=== PATIENT | male | born 1955 | race Caucasian/White ===

== ENCOUNTER → 2017-07-05 07:24 | Outpatient (CLI) | payer OTHER, SELFPAY | PROVIDERS: Family Provider Family Medicine; PCP Family Medicine; Visit Provider Family Medicine | DX: Z53.9 Procedure and treatment not carried out, unspecified reason (principal) ==

== ENCOUNTER → 2017-07-10 16:20 | Outpatient (CLI) | payer OTHER, SELFPAY ==
--- NOTE | 2017-07-10 16:23 | DI.MRI.S_ITS ---
PROCEDURE: MR SHOULDER LT WO CON INDICATIONS: left shoulder pain TECHNIQUE: Noncontrast oblique coronal T2 fast spin echo with fat saturation, oblique sagittal T1 spin echo and T2 fast spin echo with fat saturation, axial T1 spin echo and T2 fast spin echo with fat saturation through the shoulder. COMPARISON: None. FINDINGS: Image quality: Excellent. Rotator cuff: The infraspinatus and subscapularis tendons appear intact throughout. In contrast there is a wide full-thickness supraspinatus rotator cuff tear measuring up to 3.9 cm in maximal transverse dimension, and with associated adjacent mild soft tissue edema indicating likelihood of acute or subacute tear rather than chronic tear. Atrophy of the adjacent supraspinatus musculature is not present. No rotator cuff muscle atrophy on sagittal images. Bones and bursae: No bone marrow contusions or fractures. There is mild acromioclavicular joint degeneration with only mild fibrous and osseous hypertrophy potentially impinging mildly on the expected course of the supraspinatus tendon in the past. The acromion demonstrates conventional anatomy, without an os acromiale. No pathologic subacromial-subdeltoid or subcoracoid bursal fluid is present. Capsule and soft tissues: In the absence of intra-articular contrast, the labrum and glenohumeral ligaments appear intact. The long head of the biceps tendon demonstrates normal location and morphology. The rotator interval appears normal, without fibrosis. The coracohumeral ligament is normal in thickness. IMPRESSION: Wide full-thickness supraspinatus rotator cuff tear retracted medially, associated with only mild degenerative change at the acromioclavicular joint where mild chronic impingement may have been previously present from fibrous and osseous hypertrophy against the normal course of the supraspinatus tendon. No additional injury found. Dictated by: Bertrand Robin M.D. on 07/10/2017 at 16:57 Approved by: Bertrand Robin M.D. on 07/10/2017 at 16:59
== END ==
PROVIDERS: Family Provider Family Medicine; PCP Family Medicine; Visit Provider Family Medicine
DX: M75.122 Complete rotator cuff tear or rupture of left shoulder, not specified as traumatic (principal)
CPT/HCPCS: 73221

== ENCOUNTER → 2017-07-24 18:30 | Outpatient (CLI) | payer OTHER, SELFPAY ==
--- NOTE | 2017-07-24 18:33 | DI.MRI.S_ITS ---
PROCEDURE: MR SHOULDER RT WO CON INDICATIONS: ROTATOR CUFF TENDINITIS TECHNIQUE: Noncontrast oblique coronal T2 fast spin echo with fat saturation, oblique sagittal T1 spin echo and T2 fast spin echo with fat saturation, axial T1 spin echo and T2 fast spin echo with fat saturation through the shoulder. COMPARISON: [facility], MR, MR SHOULDER LT WO CON, 07/10/2017, 16:28. FINDINGS: Image quality: Excellent. Rotator cuff: The supraspinatus, infraspinatus, and subscapularis tendons appear intact throughout but there is mild thickening of the supraspinatus rotator cuff laterally, consistent with tendinosis, but a partial or full thickness tear is not present. No rotator cuff muscle atrophy on sagittal images. Bones and bursae: No bone marrow contusions or fractures. Moderate acromioclavicular joint degeneration and mild to moderate glenohumeral joint osteoarthritis also is present. There is inferior tilt of the lateral acromion and secondary fibrous and osseous hypertrophy from the degenerated a.c. joint produces mild chronic impingement against the supraspinatus course of the rotator cuff. The acromion demonstrates conventional anatomy, without an os acromiale. No pathologic subacromial-subdeltoid or subcoracoid bursal fluid is present. Marrow signal shows no sign of bone bruising or fracture, or underlying neoplastic or infectious process. Capsule and soft tissues: In the absence of intra-articular contrast, the labrum and glenohumeral ligaments appear intact. The long head of the biceps tendon demonstrates normal location and morphology. The rotator interval appears normal, without fibrosis. The coracohumeral ligament is normal in thickness. IMPRESSION: 1. The clinical history for the left shoulder MRI performed 07/10/17 had stated that the pain was related to a tree falling on the patient one year ago. The current history indicates that the pain may be related to fall on ice in January of last year. The prior MRI report includes an addendum section identifying marrow edema and abnormal fluid along the inferior posterior border of the scapula, which could have been produced by trauma in January but unlikely to be residual edema from injury over one year ago. Please correlate clinically to determine whether any additional imaging of the left scapula, for example by CT scanning for fracture, is necessary. 2. The current study shows a moderately severe degree of a.c. joint osteoarthritis and the inferior tilt of the lateral acromion, with secondary mild to moderate impingement against the supraspinatus course of the rotator cuff. Tendinosis with mild thickening of the lateral supraspinatus is present, but a partial or full-thickness rotator cuff tear on the right is not found. 3. Mild to moderate glenohumeral joint osteoarthritis. A labral tear is not seen. Dictated by: Bertrand Robin M.D. on 07/25/2017 at 14:28 Approved by: Bertrand Robin M.D. on 07/25/2017 at 14:44
== END ==
PROVIDERS: Family Provider Family Medicine; PCP Family Medicine; Visit Provider Family Medicine
DX: M75.41 Impingement syndrome of right shoulder (principal); M19.011 Primary osteoarthritis, right shoulder
CPT/HCPCS: 73221

== ENCOUNTER → 2017-07-29 07:35 | Outpatient (CLI) | payer OTHER, SELFPAY ==
--- NOTE | 2017-07-29 07:37 | DI.NM.S_ITS ---
PROCEDURE: NM BONE SCAN WHOLE BODY RADIOPHARMACEUTICAL: 21.8 mCi Tc-99m MDP IV. INDICATIONS: Monoclonal gammopathy of unknown significance TECHNIQUE: Delayed whole-body scintigrams were obtained approximately 3-4 hours after intravenous injection of radiotracer. COMPARISON: [facility], CT, KIDNEY/ URETER/BLADDER, 02/15/2016, 20:05. FINDINGS: No lesions are identified in skull, sternum, clavicles, scapulae, ribs, bony pelvis, and visualized shafts of the long bones. There is increased uptake in cervical, thoracic and lumbar spine with distribution indistinguishable from degenerative disc and facet disease; early metastasis to spine could be obscured by degenerative changes. There are foci of increased periarticular activity involving shoulders bilaterally, sternoclavicular joints bilaterally, and knees bilaterally compatible with degenerative/arthritic changes. There is normal soft tissue uptake. IMPRESSION: No scintigraphic evidence for metastatic disease. Dictated by: Lin Barrett M.D. on 07/29/2017 at 17:25 Approved by: Lin Barrett M.D. on 07/30/2017 at 13:59
== END ==
PROVIDERS: Family Provider Family Medicine; PCP Family Medicine; Visit Provider Family Medicine
DX: D47.2 Monoclonal gammopathy (principal)
CPT/HCPCS: 78306; A9503

== ENCOUNTER → 2017-09-06 07:52 | Outpatient (CLI) | payer OTHER, SELFPAY ==
[2017-09-06 08:28] LABS: Add Manual Diff / Slide Review NO; Basophils Percent Auto 0.7 % (0-2); Eosinophils Percent Auto 2.8 % (2-4); Hematocrit 41.5 % (41-53); Hemoglobin 14.4 g/dL (13.5-17.5); Lymphocytes Percent Auto 26.3 % (25-40); Mean Corpuscular HGB Conc 34.7 % (30-36); Mean Corpuscular Hemoglobin 31.3 PG (26-34); Mean Corpuscular Volume 90.2 fL (80-100); Monocytes Percent Auto 6.8 % (3-14); Neutrophils Absolute Auto 4000 /uL (3000-5900); Neutrophils Percent Auto 63.4 % (50-75); Platelet Count 275 X10^3/uL (150-400); Red Cell Distribution Width 12.9 % (11.6-14.8); White Blood Cell Count 6.3 X10^3/uL (4.5-11.0)
[2017-09-06 08:57] LABS: Alanine Aminotransferase 32 IU/L (21-72); Albumin 4.3 g/dL (3.5-5.0); Albumin Globulin Ratio 1.4 (1.0-2.8); Alkaline Phosphatase 78 U/L (38-126); Aspartate Aminotransferase 27 IU/L (17-59); BUN Creatinine Ratio 17.8 (6-22); Bilirubin Total 0.8 mg/dL (0.2-1.3); Blood Urea Nitrogen 16 mg/dL (9-20); Calcium 9.5 mg/dL (8.4-10.2); Carbon Dioxide 29 mmol/L (22-32); Chloride 105 mmol/L (98-107); Cholesterol 205 mg/dL (140-199); Estimated Glomerular Filt Rate > 60.0 mL/min (>60); Glucose 97 mg/dL (80-110); HDL Cholesterol 48 mg/dL (40-60); HEMOLYSIS < 15 (0-50); LDL Cholesterol Calculated 137 mg/dL (<100); Potassium 4.2 mmol/L (3.4-5.1); Sodium 143 mmol/L (137-145); Total Protein 7.3 g/dL (6.3-8.2); Triglycerides 100 mg/dL (35-150)
[2017-09-06 09:23] LABS: Thyroid Stimulating Hormone 2.23 uIU/mL (0.47-4.68)
[2017-09-11 16:09] LABS: Abnormal Protein Band 1 0.5 g/dL (NONE DETECTED); Albumin 3.9 g/dL (3.8-4.8); Alpha 1 Globulin 0.3 g/dL (0.2-0.3); Alpha 2 Globulin 0.9 g/dL (0.5-0.9); Beta 1 Globulin 0.4 g/dL (0.4-0.6); Gamma Globulin 0.9 g/dL (0.8-1.7); Protein, Total 6.7 g/dL (6.1-8.1)
== END ==
PROVIDERS: PCP Family Medicine; Visit Provider Family Medicine
DX: M75.80 Other shoulder lesions, unspecified shoulder (principal)
CPT/HCPCS: 36415; 80053; 80061; 84155; 84165; 84443; 85025; G0103

== ENCOUNTER → 2017-11-19 13:00 | Outpatient (CLI) | payer OTHER, SELFPAY | PROVIDERS: Family Provider Family Medicine; PCP Family Medicine | DX: Z23 Encounter for immunization (principal) | CPT/HCPCS: 90471; 90686 ==

== ENCOUNTER → 2018-03-05 09:21 | Outpatient (CLI) | payer OTHER, SELFPAY ==
--- NOTE | 2018-03-05 09:25 | DI.RAD.S_ITS ---
PROCEDURE: XR CERVICAL SPINE 2V OR 3V INDICATIONS: rt arm ridculopathy TECHNIQUE: 3 view(s) of the cervical spine were acquired. COMPARISON: None. FINDINGS: Bones: No fractures or dislocations to the C7 level. The lateral masses of C1 appear intact on the odontoid view. No suspicious bony lesions. There is mild degenerative disc disease at C3-C4, C4-C5, C5-C6 and C6-7. Bilateral facet arthropathy scattered in cervical spine, most pronounced at C4-C5 on the left. Soft tissues: No prevertebral soft tissue swelling. There is a soft tissue prominence in the hypopharyngeal area below the epiglottis. IMPRESSION: 1. Degenerative disc and facet disease. 2. There is soft tissue fullness in the hypopharynx below the epiglottis, uncertain clinical significance. If clinically indicated, neck CT with contrast may be obtained for further evaluation. Dictated by: Lin Barrett M.D. on 03/05/2018 at 9:51 Approved by: Lin Barrett M.D. on 03/05/2018 at 10:06
== END ==
PROVIDERS: PCP Family Medicine; Visit Provider Family Medicine
DX: M50.11 Cervical disc disorder with radiculopathy, high cervical region (principal); M47.22 Other spondylosis with radiculopathy, cervical region
CPT/HCPCS: 72040

== ENCOUNTER → 2018-03-07 09:40 | Outpatient (CLI) | payer OTHER, SELFPAY ==
[2018-03-07 10:09] LABS: Estimated Glomerular Filt Rate 4.5 mL/min (>60)
[2018-03-07 10:22] LABS: BUN Creatinine Ratio 10.9 (6-22)
--- NOTE | 2018-03-07 10:36 | DI.CT.S_ITS ---
PROCEDURE: CT SOFT TISSUE NECK WO CON INDICATIONS: mass seen on C spine CT TECHNIQUE: Non-contrast 3.0 mm axial sections acquired from the sella to the aortic arch. Additional oblique axial 3.0 mm sections acquired through the pharynx. 3 mm thick coronal and sagittal reformats were generated. For radiation dose reduction, the following was used: automated exposure control. COMPARISON: [facility], CR, XR CERVICAL SPINE 2V OR 3V, 03/05/2018, 9:25. FINDINGS: Image quality: Excellent. Lymph nodes: No enlarged lymph nodes seen throughout the neck. Vessels: Non-opacified vessels appear normal in caliber. Neck spaces: The oropharynx, nasopharynx, and pharynx demonstrate no mucosal lesions. The vocal cords, false vocal cords, pyriform sinuses, epiglottis, vallecula, and tongue base all appear normal. Extramucosal spaces appear unremarkable. Glands: The parotid and submandibular glands appear normal, without stones. Thyroid gland is unremarkable. Miscellaneous: Visualized brain and orbits appear normal. Lung apices appear clear. Superficial soft tissues appear normal. IMPRESSION: 1. No visualized mass corresponding to abnormality on cervical spine x-ray. The latter could be related to food debris or overlapping soft tissues. Dictated by: Clare Dixon M.D. on 03/07/2018 at 13:39 Approved by: Clare Dixon M.D. on 03/07/2018 at 13:57
[2018-03-07 10:59] LABS: Blood Urea Nitrogen 125 mg/dL (9-20)
== END ==
PROVIDERS: Family Provider Family Medicine; PCP Family Medicine; Visit Provider Family Medicine
DX: Z01.812 Encounter for preprocedural laboratory examination (principal); R22.1 Localized swelling, mass and lump, neck
CPT/HCPCS: 36415; 70490; 82565; 84520

== ENCOUNTER 2018-03-07 11:46 | Emergency (ER) | payer OTHER, SELFPAY ==
[2018-03-07] VITALS (7 sets, daily range): BP systolic 127–169; BP diastolic 61–102; PULSE 84–104; RESP 16–20; TEMP 36.8; O2SAT 98–100; BMI 27.2
--- NOTE | 2018-03-07 11:51 | ED.RECABL ---
HPI - Recheck/Abnormal Lab/Rx General Chief Complaint: Recheck/Abnormal Lab/Rx Stated Complaint: States in renal failure Time Seen by Provider: 03/07/18 11:51 Source: patient Mode of arrival: ambulatory Limitations: no limitations History of Present Illness HPI narrative: Patient is a 62-year-old male with history of MUGUS presenting with abnormal outpatient blood work. He has new onset acute kidney injury with significantly elevated creatinine and BUN. He says that he has been having some ongoing neck pain since about November. Taking 2 Aleve at night to help him sleep. He has had some radiculopathy down his right arm. He stopped taking the Aleve last month. He had an x-ray of his neck 2 days ago and was scheduled for CT with contrast today but they checked renal function 1st and found to be abnormal. He has overall been feeling a little weak and tired. He still urinating. He has no chest pain no shortness of breath no fever no nausea or vomiting. He has been able to work regularly. 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 Related Data Home Medications Medication Instructions Recorded Confirmed gabapentin 100 mg PO BEDTIME 03/07/18 03/07/18 lifitegrast [Xiidra] 1 drp OPHTHALMIC (EYE) BID 03/07/18 03/07/18 mirtazapine 15 mg PO BEDTIME 03/07/18 03/07/18 Previous Rx's Medication Instructions Recorded lorazepam 0.5 mg tablet 0.5 mg PO DAILY PRN #10 tab 09/10/17 dexamethasone 1.5 mg (35 tabs) See Label Instructions PO PER PKG 03/05/18 tablets in a dose pack DIR #35 each Allergies Allergy/AdvReac Type Severity Reaction Status Date / Time No Known Drug Allergies Allergy Verified 03/05/18 08:24 Review of Systems Review of Systems ROS Unobtainable: All systems reviewed & are unremarkable except as noted in HPI and below Constitutional Denies chills, Denies fever(s), Denies lethargy and Denies weakness Cardiovascular Denies chest pain, Denies irregular heart rhythm, Denies lightheadedness, Denies palpitations, Denies dyspnea, Denies dyspnea on exertion and Denies orthopnea Respiratory Denies cough, Denies dyspnea, Denies dyspnea on exertion and Denies wheezing Gastrointestinal Gastrointestinal: Denies abdominal pain, Denies change in bowel habits, Denies diarrhea, Denies nausea and Denies vomiting Genitourinary Reports as per HPI Musculoskeletal Denies back pain, Denies muscle weakness, Denies numbness and Denies tingling Integumentary/Breasts Denies pruritus, Denies erythema, Denies rash and Denies wounds Neurologic Denies numbness, Denies tingling and Denies weakness Endocrine Denies palpitations Allergic/Immunologic Denies wheezing PFSH Medical History Monoclonal gammopathy of undetermined significance (Acute) Hearing loss (Chronic 1997) Mumps (Chronic 1961) Vitiligo (Chronic 1981) Dry eye syndrome (Resolved 1979) Fractures (Resolved 1964) Positive PPD (Resolved 1979) Surgical History Anesthesia (Resolved) History of nasal septoplasty (Resolved 1973) History of vasectomy (Resolved) Status post excision of lipoma (Resolved 1994) Social History Smoking Status: Never smoker Exam Initial Vital Signs Initial Vital Signs: Vital Signs Temperature 98.2 F 03/07/18 11:57 Pulse Rate 100 H 03/07/18 11:57 Respiratory Rate 16 03/07/18 11:57 Blood Pressure 169/102 H 03/07/18 11:57 Pulse Oximetry 100 03/07/18 11:57 GENERAL: Alert well-appearing male no acute distress alert oriented x3 HEENT: Head atraumatic,EOMI, pupils reactive, face symmetric CARDIOVASCULAR: Regular rate and rhythm without murmurs, rubs or gallops. RESPIRATORY: Breath sounds equal bilaterally, no wheezes rales or rhonchi. ABDOMEN: Soft, nontender. Normoactive bowel sounds all 4 quadrants. No guarding or rebound. EXTREMITIES: Normal range of motion, no clubbing or edema. Neurovascularly intact NEUROLOGICAL: Alert and oriented x4.Normal gait and speech. Cranial nerves II through XII grossly intact. SKIN: Warm, dry, no laceration, no petechiae, no rashes or lesions. Course Orders Ordered: ED Orders 03/07/18 12:15 Complete Blood Count AUTO DIFF Stat Comprehensive Metabolic Panel Stat Creatine Kinase Stat Phosphorous Stat Uric Acid Stat 03/07/18 12:20 Urinalysis and Microscopic Stat Urine Culture Stat 03/07/18 13:00 EKG-12 Lead Stat 03/07/18 15:10 Potassium Stat Discontinued Medications Dextrose (D50w) 25 gm IV NOW ONE Stop: 03/07/18 13:01 Last Admin: 03/07/18 13:19 Dose: 25 gm Furosemide (Lasix) 40 mg IV NOW ONE Stop: 03/07/18 13:06 Last Admin: 03/07/18 13:13 Dose: 40 mg Sodium Chloride (Normal Saline 0.9%) 1,000 mls @ 250 mls/hr IV BOLUS ONE Stop: 03/07/18 16:08 Last Infusion: 03/07/18 16:57 Dose: 0 mls/hr Infusion: 03/07/18 15:07 Dose: 250 mls/hr Infusion: 03/07/18 14:25 Dose: 0 mls/hr Admin: 03/07/18 12:25 Dose: 250 mls/hr Calcium Gluconate 4.65 meq/ (Sodium Chloride) 60 mls @ 120 mls/hr IV NOW ONE Stop: 03/07/18 13:50 Last Infusion: 03/07/18 14:55 Dose: 0 mls/hr Admin: 03/07/18 14:19 Dose: 120 mls/hr Insulin Human Regular (Humulin R) 10 unit IV NOW ONE Stop: 03/07/18 13:01 Last Admin: 03/07/18 13:20 Dose: 10 unit Sodium Polystyrene Sulfonate (Kayexalate) 30 gm PO NOW ONE Stop: 03/07/18 13:01 Last Admin: 03/07/18 13:14 Dose: 30 gm Vital Signs - 8 hr 03/07/18 11:57 03/07/18 13:01 03/07/18 13:41 Temperature 98.2 F Pulse Rate 100 H 84 87 Respiratory Rate 16 17 16 Blood Pressure 169/102 H Blood Pressure [Right Arm] 146/72 H 161/61 H Pulse Oximetry 100 100 100 03/07/18 14:32 03/07/18 15:50 03/07/18 16:15 Temperature Pulse Rate 104 H 93 H 94 H Respiratory Rate 19 17 20 Blood Pressure Blood Pressure [Right Arm] 154/88 H 127/82 153/93 H Pulse Oximetry 98 100 98 03/07/18 16:30 Temperature Pulse Rate 94 H Respiratory Rate 20 Blood Pressure Blood Pressure [Right Arm] 146/76 H Pulse Oximetry 98 MDM - Recheck/Abnormal Lab/Rx Lab Data Attestation: I reviewed the patient's lab results. Result diagrams: 03/07/18 12:15 01/11/19 15:10 Lab Results 03/07/18 03/07/18 03/07/18 Range/Units 12:15 12:15 12:15 WBC 8.7 (4.5-11.0) X10^3/uL RBC 3.94 L (4.5-5.9) X10^6/uL Hgb 11.8 L (13.5-17.5) g/dL Hct 34.6 L (41-53) % MCV 87.8 (80-100) fL MCH 30.1 (26-34) PG MCHC 34.3 (30-36) % RDW 12.4 (11.6-14.8) % Plt Count 316 (150-400) X10^3/uL Neut % (Auto) 81.4 H (50-75) % Lymph % (Auto) 12.0 L (25-40) % Hemphill % (Auto) 5.2 (3-14) % Eos % (Auto) 0.7 L (2-4) % Baso % (Auto) 0.7 (0-2) % Neut # (Auto) 7100 H (5373-7620) /uL Sodium 138 (137-145) mmol/L Potassium 6.9 H* (3.4-5.1) mmol/L Chloride 105 (98-107) mmol/L Carbon Dioxide 16 L (22-32) mmol/L BUN 129 H* (9-20) mg/dL Creatinine 11.40 H* (0.66-1.25) mg/dL Estimated GFR 4.6 L (>60) mL/min BUN/Creatinine Ratio 11.3 (6-22) Glucose 107 (80-110) mg/dL Uric Acid 9.0 H (3.5-8.5) mg/dL Calcium 9.7 (8.4-10.2) mg/dL Phosphorus 7.1 H (2.3-3.7) mg/dL Total Bilirubin 0.4 (0.2-1.3) mg/dL AST 22 (17-59) IU/L ALT 29 (21-72) IU/L Alkaline Phosphatase 83 (38-126) U/L Total Creatine Kinase 348 H (55-170) U/L Total Protein 8.2 (6.3-8.2) g/dL Albumin 4.7 (3.5-5.0) g/dL Globulin 3.5 (1.7-4.1) g/dL Albumin/Globulin Ratio 1.3 (1.0-2.8) Urine Color Urine Appearance Urine pH (4.5-8.0) Ur Specific Fossil (1.000-1.035) Urine Protein (Negative) Urine Glucose (UA) (Negative) g/dL Urine Ketones (NEGATIVE) Urine Occult Blood (Negative) Urine Nitrate (Negative) Urine Bilirubin (NEGATIVE) Urine Urobilinogen (0.2) E.U./dL Ur Leukocyte Esterase (NEGATIVE) Urine RBC (0-5/HPF) Urine WBC (0-5/HPF) Urine Bacteria (None) Ur Culture Indicated? 03/07/18 03/07/18 Range/Units 12:20 15:10 WBC (4.5-11.0) X10^3/uL RBC (4.5-5.9) X10^6/uL Hgb (13.5-17.5) g/dL Hct (41-53) % MCV (80-100) fL MCH (26-34) PG MCHC (30-36) % RDW (11.6-14.8) % Plt Count (150-400) X10^3/uL Neut % (Auto) (50-75) % Lymph % (Auto) (25-40) % Hemphill % (Auto) (3-14) % Eos % (Auto) (2-4) % Baso % (Auto) (0-2) % Neut # (Auto) (9702-5823) /uL Sodium (137-145) mmol/L Potassium 4.8 D (3.4-5.1) mmol/L Chloride (98-107) mmol/L Carbon Dioxide (22-32) mmol/L BUN (9-20) mg/dL Creatinine (0.66-1.25) mg/dL Estimated GFR (>60) mL/min BUN/Creatinine Ratio (6-22) Glucose (80-110) mg/dL Uric Acid (3.5-8.5) mg/dL Calcium (8.4-10.2) mg/dL Phosphorus (2.3-3.7) mg/dL Total Bilirubin (0.2-1.3) mg/dL AST (17-59) IU/L ALT (21-72) IU/L Alkaline Phosphatase (38-126) U/L Total Creatine Kinase (55-170) U/L Total Protein (6.3-8.2) g/dL Albumin (3.5-5.0) g/dL Globulin (1.7-4.1) g/dL Albumin/Globulin Ratio (1.0-2.8) Urine Color Yellow Urine Appearance Clear Urine pH 5.5 (4.5-8.0) Ur Specific Fossil 1.010 (1.000-1.035) Urine Protein 1+ H (Negative) Urine Glucose (UA) Negative (Negative) g/dL Urine Ketones Negative (NEGATIVE) Urine Occult Blood 2+ H (Negative) Urine Nitrate Negative (Negative) Urine Bilirubin Negative (NEGATIVE) Urine Urobilinogen 0.2 (0.2) E.U./dL Ur Leukocyte Esterase Trace H (NEGATIVE) Urine RBC 1-5/hpf (0-5/HPF) Urine WBC 1-5/hpf (0-5/HPF) Urine Bacteria Occasional (0-1) (None) Ur Culture Indicated? Specimen cultured Point of Care Testing Glucose POC 114 Imaging Data XR Cervical: Radiologist's impression: PROCEDURE: XR CERVICAL SPINE 2V OR 3V INDICATIONS: rt arm ridculopathy TECHNIQUE: 3 view(s) of the cervical spine were acquired. COMPARISON: None. FINDINGS: Bones: No fractures or dislocations to the C7 level. The lateral masses of C1 appear intact on the odontoid view. No suspicious bony lesions. There is mild degenerative disc disease at C3-C4, C4-C5, C5-C6 and C6-7. Bilateral facet arthropathy scattered in cervical spine, most pronounced at C4-C5 on the left. Soft tissues: No prevertebral soft tissue swelling. There is a soft tissue prominence in the hypopharyngeal area below the epiglottis. IMPRESSION: 1. Degenerative disc and facet disease. 2. There is soft tissue fullness in the hypopharynx below the epiglottis, uncertain clinical significance. If clinically indicated, neck CT with contrast may be obtained for further evaluation. Dictated by: Lin Barrett M.D. on 03/05/2018 at 9:51 soft tissue neck: Radiologist's impression: PROCEDURE: CT SOFT TISSUE NECK WO CON INDICATIONS: mass seen on C spine CT TECHNIQUE: Non-contrast 3.0 mm axial sections acquired from the sella to the aortic arch. Additional oblique axial 3.0 mm sections acquired through the pharynx. 3 mm thick coronal and sagittal reformats were generated. For radiation dose reduction, the following was used: automated exposure control. COMPARISON: [facility], CR, XR CERVICAL SPINE 2V OR 3V, 03/05/2018, 9:25. FINDINGS: Image quality: Excellent. Lymph nodes: No enlarged lymph nodes seen throughout the neck. Vessels: Non-opacified vessels appear normal in caliber. Neck spaces: The oropharynx, nasopharynx, and pharynx demonstrate no mucosal lesions. The vocal cords, false vocal cords, pyriform sinuses, epiglottis, vallecula, and tongue base all appear normal. Extramucosal spaces appear unremarkable. Glands: The parotid and submandibular glands appear normal, without stones. Thyroid gland is unremarkable. Miscellaneous: Visualized brain and orbits appear normal. Lung apices appear clear. Superficial soft tissues appear normal. IMPRESSION: 1. No visualized mass corresponding to abnormality on cervical spine x-ray. The latter could be related to food debris or overlapping soft tissues. Dictated by: Clare Dixon M.D. on 03/07/2018 at 13:39 ECG Data Attestation: I personally reviewed and interpreted this ECG as follows: Prior ECG tracings: not available for review Interpretation: Sinus rhythm rate 83 HI interval 167, QTC 359, QRS 97. Normal intervals peak T waves noted on EKG MDM Narrative Medical decision making narrative: Bone pain, with protein in the urine and known MUGS, possible new onset multiple myeloma I spoke with Dr. marshall, hospitalist at [facility] who recommends patient be transferred based on extremely elevated potassium and kidney function no nephrology of the available I spoke with Dr. Davis, nephrology at [facility]. Based on patient's potassium patient may require dialysis, unfortunately based on staffing he is unable to do dialysis today. Recommends transferring to a different hospital. I spoke with Dr. Patel hospitalist at [place], based on patient's potassium he recommends patient be transferred and admitted to the ICU. Dr. Evans graciously accepts patient for admission. Repeat potassium is 4.8 Dr. Evans is updated states the patient no longer needs ICU. Dr. Patel is updated on patient's potassium he happily accepts patient to the floor. Ambulance is here for transport, fuel house attendant at [facility] is notified Discharge Plan Departure Patient Disposition: [facility] Clinical Impression: JOSE DE JESUS (acute kidney injury), Acute hyperkalemia Discharge Date/Time: 03/07/18 17:15 Interventions: ED Discharge Assessment Last Done: 03/07/18 17:23 Prescriptions: No Action lorazepam 0.5 mg tablet 0.5 mg PO DAILY PRN (Reason: anxiety) Qty: 10 RF: 0 dexamethasone [DexPak 10 day] 1.5 mg (35 tabs) tablets,dose pack See Label Instructions PO PER PKG DIR Qty: 35 RF: 0 lifitegrast [Xiidra] 5 % dropperette 1 drp ophthalmic (eye) BID RF: 0 mirtazapine 15 mg tablet 15 mg PO BEDTIME RF: 0 gabapentin 100 mg capsule 100 mg PO BEDTIME RF: 0
[2018-03-07 12:20] LABS: Add Manual Diff / Slide Review NO; Basophils Percent Auto 0.7 % (0-2); Eosinophils Percent Auto 0.7 % (2-4); Hematocrit 34.6 % (41-53); Hemoglobin 11.8 g/dL (13.5-17.5); Mean Corpuscular HGB Conc 34.3 % (30-36); Mean Corpuscular Hemoglobin 30.1 PG (26-34); Mean Corpuscular Volume 87.8 fL (80-100); Monocytes Percent Auto 5.2 % (3-14); Neutrophils Absolute Auto 7100 /uL (1500-7000); Neutrophils Percent Auto 81.4 % (50-75); Platelet Count 316 X10^3/uL (150-400); Red Blood Cell Count 3.94 X10^6/uL (4.5-5.9); Red Cell Distribution Width 12.4 % (11.6-14.8); White Blood Cell Count 8.7 X10^3/uL (4.5-11.0)
[2018-03-07 12:23] LABS: Appearance Urine UA CLEAR; Bilirubin Urine UA NEGATIVE (NEGATIVE); Color Urine UA YELLOW; Glucose Urine UA NEGATIVE (Negative); Ketones Urine UA NEGATIVE (NEGATIVE); Leukocyte Esterase Urine UA TRACE (NEGATIVE); Nitrite Urine UA NEGATIVE (Negative); Occult Blood Urine UA 2+ (Negative); Protein Urine UA 1+ (Negative); Urobilinogen Urine UA 0.2 E.U./dL (0.2); pH Urine UA 5.5 (4.5-8.0)
[2018-03-07] MEDS: SODIUM CHLORIDE 0.9% 1,000 ML 250 ML IV (12:25)
[2018-03-07 12:30] LABS: Bacteria Urine Occasional (0-1); Culture Indicated Urine Specimen Cultured; RBC Urine 1-5/HPF (0-5/HPF); WBC Urine 1-5/HPF (0-5/HPF)
[2018-03-07 12:32] LABS: Alanine Aminotransferase 29 IU/L (21-72); Albumin 4.7 g/dL (3.5-5.0); Albumin Globulin Ratio 1.3 (1.0-2.8); Alkaline Phosphatase 83 U/L (38-126); Aspartate Aminotransferase 22 IU/L (17-59); Bilirubin Total 0.4 mg/dL (0.2-1.3); Calcium 9.7 mg/dL (8.4-10.2); Carbon Dioxide 16 mmol/L (22-32); Chloride 105 mmol/L (98-107); Estimated Glomerular Filt Rate 4.6 mL/min (>60); Globulin 3.5 g/dL (1.7-4.1); Glucose 107 mg/dL (80-110); HEMOLYSIS < 15 (0-50); Sodium 138 mmol/L (137-145); Total Protein 8.2 g/dL (6.3-8.2)
[2018-03-07 12:58] LABS: BUN Creatinine Ratio 11.3 (6-22)
[2018-03-07 13:00] LABS: Potassium 6.9 mmol/L (3.4-5.1)
[2018-03-07 13:01] LABS: Blood Urea Nitrogen 129 mg/dL (9-20)
[2018-03-07 13:02] LABS: Creatine Kinase 348 U/L (55-170); Phosphorous 7.1 mg/dL (2.3-3.7)
[2018-03-07] MEDS: FUROSEMIDE 40 MG/4 ML VIAL IV (13:13)
[2018-03-07] MEDS: SODIUM POLYSTYRENE SULFON/SORB 15 GM/60 ML CUP 30 GM PO (13:14)
[2018-03-07] MEDS: DEXTROSE 50 % IN WATER 25 GM/50 ML SYRINGE IV (13:19)
[2018-03-07] MEDS: INSULIN REGULAR 100 UNIT/ML 3 ML VIAL 10 UNIT IV (13:20)
[2018-03-07] MEDS: CALCIUM GLUCONATE 4.65 MEQ in SODIUM CHLORIDE 0.9% 50 ML 120 ML IV (14:19)
[2018-03-07 15:31] LABS: HEMOLYSIS < 15 (0-50); Potassium 4.8 mmol/L (3.4-5.1)
== END 2018-03-07 17:15 | disposition short-term general hospital (02) ==
PROVIDERS: Emergency Provider Emergency Medicine; PCP Family Medicine
DX: N17.9 Acute kidney failure, unspecified (principal); E87.5 Hyperkalemia
CPT/HCPCS: 36415; 36591; 70490; 80053; 81001; 82550; 82565; 84100; 84132; 84520; 84550; 85025; 87086; 93005; 93010; 96361; 96365; 96375; 99285; J0610; J1940

== ENCOUNTER 2018-03-26 08:44 | Emergency (ER) | payer OTHER, SELFPAY ==
[2018-03-26 08:49] VITALS: BP 152/89; PULSE 144; RESP 21; TEMP 37.3; O2SAT 100; BMI 26.4
--- NOTE | 2018-03-26 09:01 | PC.NURSE ---
right upper chest with hemodialysis cath.
--- NOTE | 2018-03-26 09:15 | ED.ARRPALP ---
HPI - Arrhythmia/Palpitations General Chief Complaint: Arrhythmia/Palpitations Stated Complaint: tachicardiya Time Seen by Provider: 03/26/18 09:02 Source: patient, RN notes reviewed and old records reviewed Mode of arrival: ambulatory Limitations: no limitations History of Present Illness HPI narrative: Patient is a 62-year-old male with newly diagnosed multiple myeloma and renal failure on hemodialysis. He was initially seen here and evaluated 2 weeks ago sent to [facility] where he was started on dialysis and the diagnosis was made. He was released 5 days ago. He has had 5 rounds of plasmapheresis he gets dialysis Saturday is and has been seen by Oncology. He is here today because he has been having heart palpitations. He noticed that throughout this process is heart rate has been slightly more elevated than normal typically 90. He currently has a sinus rhythm in the 130s. Last evening he could feel his heart pounding but he felt that it was regular. He denies increased shortness of breath dizziness or lightheadedness no chest pain. He states that he is on Lasix, and he lost 12 lb in water weight from Lasix. He is still able to make urine. Patient is quite tachycardic. He states that he has had some anemia throughout the process. He denies any shortness of breath dizziness or lightheadedness. He noticed more that he was having palpitations last night while he was lying down. MD complaint: rapid heart beat and heart racing Related Data Home Medications Medication Instructions Recorded Confirmed acyclovir 200 mg PO BID 03/25/18 03/26/18 allopurinol 100 mg PO DAILY 03/25/18 03/26/18 furosemide 80 mg PO DAILY 03/25/18 03/26/18 pantoprazole 40 mg PO DAILY 03/25/18 03/26/18 prochlorperazine maleate 10 mg PO Q6H PRN 03/25/18 03/26/18 B complex-vitamin C-folic acid 1 tab PO DAILY 03/26/18 03/26/18 [Maria Teresa-Jena] calcium acetate 1,334 mg PO TID 03/26/18 03/26/18 cyclophosphamide 300 mg PO TU 03/26/18 03/26/18 dexamethasone 40 mg PO Q7D 03/26/18 03/26/18 gabapentin 100 mg PO DAILY 03/26/18 03/26/18 lifitegrast [Xiidra] 1 drp EYE-BOTH BID 03/26/18 03/26/18 mirtazapine 15 mg PO BEDTIME 03/26/18 03/26/18 Previous Rx's Medication Instructions Recorded lorazepam 0.5 mg tablet 0.5 mg PO QD-BID PRN #10 tab 03/26/18 Allergies Allergy/AdvReac Type Severity Reaction Status Date / Time No Known Drug Allergies Allergy Verified 03/26/18 08:55 Review of Systems Review of Systems ROS Unobtainable: All systems reviewed & are unremarkable except as noted in HPI and below Constitutional Denies chills, Reports fatigue, Denies fever(s), Denies lethargy and Reports weakness Cardiovascular Reports as per HPI, Reports palpitations, Denies dyspnea and Denies dyspnea on exertion Respiratory Denies cough, Denies dyspnea, Denies dyspnea on exertion and Denies wheezing Gastrointestinal Gastrointestinal: Denies abdominal pain, Denies change in bowel habits, Denies diarrhea, Denies nausea and Denies vomiting Musculoskeletal Denies back pain, Denies muscle weakness, Denies numbness and Denies tingling Integumentary/Breasts Denies pruritus, Denies erythema, Denies rash and Denies wounds Neurologic Denies numbness, Denies tingling and Reports weakness Endocrine Reports fatigue and Reports palpitations Allergic/Immunologic Denies wheezing PFSH Medical History Monoclonal gammopathy of undetermined significance (Acute) Hearing loss (Chronic 1997) Mumps (Chronic 1961) Vitiligo (Chronic 1981) Dry eye syndrome (Resolved 1979) Fractures (Resolved 1964) Positive PPD (Resolved 1979) Surgical History Anesthesia (Resolved) History of nasal septoplasty (Resolved 1973) History of vasectomy (Resolved) Status post excision of lipoma (Resolved 1994) Family History Brother Age: 70 Hypertension ETOH abuse Father Hypertension High cholesterol Lung cancer Grandfather COPD (chronic obstructive pulmonary disease) Grandmother Breast cancer Mother No problems noted. Grandfather [place] (myocardial infarction) CVA (cerebral vascular accident) Grandmother TB (tuberculosis) Social History Smoking Status: Never smoker Social History Smoking Status: Never smoker Exam Initial Vital Signs Initial Vital Signs: Vital Signs Temperature 99.1 F 01/30/19 08:49 Pulse Rate 144 H 03/26/18 08:49 Respiratory Rate 21 03/26/18 08:49 Blood Pressure 152/89 H 03/26/18 08:49 Pulse Oximetry 100 03/26/18 08:49 GENERAL: Alert pleasant male no acute distress alert oriented x3 HEENT: Head atraumatic,EOMI, pupils reactive, CARDIOVASCULAR: Regular, tachycardic RESPIRATORY: Breath sounds equal bilaterally, no wheezes rales or rhonchi. ABDOMEN: Soft, nontender. Normoactive bowel sounds all 4 quadrants. No guarding or rebound. EXTREMITIES: Normal range of motion, no clubbing or edema. Neurovascularly intact NEUROLOGICAL: Alert and oriented x4.Normal gait and speech. Cranial nerves II through XII grossly intact. SKIN: Warm, dry, no laceration, no petechiae, no rashes or lesions. Course Orders Ordered: Discontinued Medications Sodium Chloride (Normal Saline 0.9%) 1,000 mls @ 1,000 mls/hr IV BOLUS PRN PRN Reason: Fluid replacement Last Infusion: 03/26/18 11:25 Dose: 0 mls/hr Admin: 03/26/18 09:35 Dose: 1,000 mls/hr Vital Signs - 8 hr 03/26/18 11:00 03/26/18 11:30 Pulse Rate 102 H 106 H Respiratory Rate 16 16 Blood Pressure [Left Arm] 124/71 130/71 Pulse Oximetry 100 100 MDM - Arrhythmia/Palpitations Lab Data Attestation: I reviewed the patient's lab results. Result diagrams: 03/26/18 09:25 03/26/18 09:25 Lab Results 03/26/18 03/26/18 Range/Units 09:25 09:25 WBC 17.1 H (4.5-11.0) X10^3/uL RBC 3.02 L (4.5-5.9) X10^6/uL Hgb 9.0 L (13.5-17.5) g/dL Hct 27.2 L (41-53) % MCV 90.1 (80-100) fL MCH 29.8 (26-34) PG MCHC 33.1 (30-36) % RDW 12.9 (11.6-14.8) % Plt Count 136 L (150-400) X10^3/uL Neut % (Auto) 92.9 H (50-75) % Lymph % (Auto) 3.3 L (25-40) % Chambers % (Auto) 3.3 (3-14) % Eos % (Auto) 0.0 L (2-4) % Baso % (Auto) 0.5 (0-2) % Neut # (Auto) 27932 H (9409-8567) /uL Lymph # (Auto) 600 L (5667-4611) /uL Chambers # (Auto) 600 (0-900) /uL Eos # (Auto) 0 (0-450) /uL Baso # (Auto) 100 (0-100) /uL Sodium 135 L (137-145) mmol/L Potassium 4.8 (3.4-5.1) mmol/L Chloride 100 (98-107) mmol/L Carbon Dioxide 24 (22-32) mmol/L BUN 27 H (9-20) mg/dL Creatinine 3.60 H (0.66-1.25) mg/dL Estimated GFR 17.2 L (>60) mL/min BUN/Creatinine Ratio 7.5 (6-22) Glucose 199 H (80-110) mg/dL Calcium 8.5 (8.4-10.2) mg/dL Phosphorus 1.4 L (2.3-3.7) mg/dL Magnesium 1.6 (1.6-2.3) mg/dL Total Bilirubin 0.2 (0.2-1.3) mg/dL AST 44 (17-59) IU/L ALT 64 (21-72) IU/L Alkaline Phosphatase 52 (38-126) U/L Total Protein 5.6 L (6.3-8.2) g/dL Albumin 3.9 (3.5-5.0) g/dL Globulin 1.7 (1.7-4.1) g/dL Albumin/Globulin Ratio 2.3 (1.0-2.8) ECG Data Attestation: I personally reviewed and interpreted this ECG as follows: Prior ECG tracings: not available for review Interpretation: Normal sinus rhythm rate [address] changes or T-wave inversion MDM Narrative Medical decision making narrative: Patient's tachycardia has improved somewhat with IV fluids. He is not really complaining of shortness of breath and he did diurese quite a bit with Lasix. PE is considered with his cancer diagnosis and recent hospitalization. However he did have quite extensive and bad kidneys which were difficult to improve and they finally do seem improved. 10:15 a.m. I discussed case with Dr. Masters. Patient initially quite tachycardic concern for PE the. Dr. Masters would like to try and avoid PE study if possible recommend echocardiogram may give up to 1 L IV normal saline. If absolutely needed may do PE study. Patient was given 1 L of IV fluids his heart rate did actually improved to 104 while at rest. He has no signs or symptoms consistent with PE, except for tachycardia which is now improved. I did discuss this both with and patient do understand of this severity and risk factors for pulmonary embolism. At this time there also agreeable not to do a PE scan. I think the tachycardia is more likely from dehydration from significant diuresis over the last few weeks. Patient says that he did stop his Lasix today and he did not take the full dose yesterday. I recommended that he call and talk with his doctors in regards to further Lasix dosing. Discharge Plan Departure Patient Disposition: Home Clinical Impression: Dehydration Discharge Date/Time: 03/26/18 11:40 Interventions: ED Discharge Assessment Last Done: 03/26/18 12:13 Instructions: Dehydration Activity Restrictions/Additional Instructions: *You have been diagnosed with dehydration *What to do: Your heart rate was likely increased from dehydration. *Continue to take medications as directed *Follow up with your primary care provider in 2-3 days *Return to ER if you should have increased heart rate, dizziness, lightheadedness, weakness, fever or any new, worsening or concerning symptoms Prescriptions: No Action lorazepam 0.5 mg tablet 0.5 mg PO QD-BID PRN (Reason: anxiety) Qty: 10 RF: 1 acyclovir 200 mg Capsule 200 mg PO BID RF: 0 allopurinol 100 mg Tablet 100 mg PO DAILY RF: 0 furosemide 80 mg Tablet 80 mg PO DAILY RF: 0 pantoprazole 40 mg Tablet,Delayed Release (Dr/Ec) 40 mg PO DAILY RF: 0 prochlorperazine maleate 10 mg Tablet 10 mg PO Q6H PRN (Reason: Nausea And Vomiting) RF: 0 lifitegrast [Xiidra] 5 % dropperette 1 drp EYE-BOTH BID RF: 0 dexamethasone 4 mg Tablet 40 mg PO Q7D RF: 0 B complex-vitamin C-folic acid [Maria Teresa-Jena] 0.8 mg Tablet 1 tab PO DAILY RF: 0 mirtazapine 15 mg tablet 15 mg PO BEDTIME RF: 0 gabapentin 100 mg capsule 100 mg PO DAILY RF: 0 calcium acetate 667 mg Capsule 1,334 mg PO TID RF: 0 cyclophosphamide 50 mg Capsule 300 mg PO TU RF: 0 Referrals: Miki Mustafa MD [Primary Care Provider] - Artemio Masters MD [Non-Staff] - Deven Capellan MD [Physician] -
[2018-03-26 09:30] VITALS: BP 139/76; PULSE 113; RESP 23; O2SAT 99
[2018-03-26] MEDS: SODIUM CHLORIDE 0.9% 1,000 ML 1000 ML IV (09:35)
[2018-03-26 09:36] LABS: Add Manual Diff / Slide Review NO; Basophils Absolute Auto 100 /uL (0-100); Basophils Percent Auto 0.5 % (0-2); Eosinophils Absolute Auto 0 /uL (0-450); Hematocrit 27.2 % (41-53); Lymphocytes Absolute Auto 600 /uL (1100-4500); Lymphocytes Percent Auto 3.3 % (25-40); Mean Corpuscular HGB Conc 33.1 % (30-36); Mean Corpuscular Hemoglobin 29.8 PG (26-34); Mean Corpuscular Volume 90.1 fL (80-100); Monocytes Absolute Auto 600 /uL (0-900); Monocytes Percent Auto 3.3 % (3-14); Neutrophils Absolute Auto 15800 /uL (1500-7000); Neutrophils Percent Auto 92.9 % (50-75); Platelet Count 136 X10^3/uL (150-400); Red Blood Cell Count 3.02 X10^6/uL (4.5-5.9); Red Cell Distribution Width 12.9 % (11.6-14.8); White Blood Cell Count 17.1 X10^3/uL (4.5-11.0)
[2018-03-26 09:47] LABS: Alanine Aminotransferase 64 IU/L (21-72); Albumin 3.9 g/dL (3.5-5.0); Albumin Globulin Ratio 2.3 (1.0-2.8); Alkaline Phosphatase 52 U/L (38-126); Aspartate Aminotransferase 44 IU/L (17-59); BUN Creatinine Ratio 7.5 (6-22); Bilirubin Total 0.2 mg/dL (0.2-1.3); Blood Urea Nitrogen 27 mg/dL (9-20); Calcium 8.5 mg/dL (8.4-10.2); Carbon Dioxide 24 mmol/L (22-32); Chloride 100 mmol/L (98-107); Estimated Glomerular Filt Rate 17.2 mL/min (>60); Globulin 1.7 g/dL (1.7-4.1); Glucose 199 mg/dL (80-110); HEMOLYSIS < 15 (0-50); Magnesium 1.6 mg/dL (1.6-2.3); Phosphorous 1.4 mg/dL (2.3-3.7); Potassium 4.8 mmol/L (3.4-5.1); Sodium 135 mmol/L (137-145); Total Protein 5.6 g/dL (6.3-8.2)
[2018-03-26 10:00] VITALS: BP 137/92; PULSE 111; RESP 18; O2SAT 100
[2018-03-26 10:30] VITALS: BP 137/78; PULSE 110; RESP 20; O2SAT 98
[2018-03-26 11:00] VITALS: BP 124/71; PULSE 102; RESP 16; O2SAT 100
[2018-03-26 11:30] VITALS: BP 130/71; PULSE 106; RESP 16; O2SAT 100
== END 2018-03-26 11:40 | disposition home or self-care (01) ==
PROVIDERS: Emergency Provider Emergency Medicine; PCP Family Medicine
DX: E86.0 Dehydration (principal)
CPT/HCPCS: 36415; 80053; 83735; 84100; 85025; 93005; 93041; 96360; 96361; 99284

== ENCOUNTER → 2018-04-22 16:00 | Outpatient (CLI) | payer OTHER, SELFPAY ==
[2018-04-22 18:02] LABS: BUN Creatinine Ratio 6.5 (6-22); Blood Urea Nitrogen 15 mg/dL (9-20); Calcium 9.1 mg/dL (8.4-10.2); Carbon Dioxide 29 mmol/L (22-32); Chloride 98 mmol/L (98-107); Estimated Glomerular Filt Rate 28.9 mL/min (>60); Glucose 96 mg/dL (80-110); HEMOLYSIS < 15 (0-50); Phosphorous 3.5 mg/dL (2.3-3.7); Potassium 4.6 mmol/L (3.4-5.1); Sodium 137 mmol/L (137-145)
[2018-04-26 14:13] LABS: Free Kappa Light Chain 22.9 mg/L (3.3-19.4); Free Lambda 226.6 mg/L (5.7-26.3)
== END ==
PROVIDERS: Family Provider Specialist; PCP Family Medicine; Visit Provider Family Medicine
DX: Z87.448 Personal history of other diseases of urinary system (principal)
CPT/HCPCS: 80048; 83883; 84100

== ENCOUNTER → 2018-04-23 14:45 | Outpatient (CLI) | payer OTHER, SELFPAY ==
[2018-04-23 15:29] LABS: Add Manual Diff / Slide Review NO; Basophils Absolute Auto 0 /uL (0-100); Basophils Percent Auto 0.3 % (0-2); Eosinophils Absolute Auto 200 /uL (0-450); Eosinophils Percent Auto 1.9 % (2-4); Hematocrit 27.9 % (41-53); Hemoglobin 9.8 g/dL (13.5-17.5); Lymphocytes Absolute Auto 1600 /uL (1100-4500); Lymphocytes Percent Auto 17.7 % (25-40); Mean Corpuscular HGB Conc 35.1 % (30-36); Mean Corpuscular Hemoglobin 31.7 PG (26-34); Mean Corpuscular Volume 90.1 fL (80-100); Monocytes Absolute Auto 1100 /uL (0-900); Monocytes Percent Auto 12.3 % (3-14); Neutrophils Absolute Auto 6000 /uL (1500-7000); Neutrophils Percent Auto 67.8 % (50-75); Platelet Count 229 X10^3/uL (150-400); Red Cell Distribution Width 14.9 % (11.6-14.8); White Blood Cell Count 8.8 X10^3/uL (4.5-11.0)
[2018-04-23 15:59] LABS: Alanine Aminotransferase 44 IU/L (21-72); Albumin 4.1 g/dL (3.5-5.0); Albumin Globulin Ratio 1.7 (1.0-2.8); Alkaline Phosphatase 124 U/L (38-126); Aspartate Aminotransferase 39 IU/L (17-59); BUN Creatinine Ratio 7.9 (6-22); Bilirubin Total 0.4 mg/dL (0.2-1.3); Blood Urea Nitrogen 27 mg/dL (9-20); Calcium 9.3 mg/dL (8.4-10.2); Carbon Dioxide 26 mmol/L (22-32); Chloride 101 mmol/L (98-107); Estimated Glomerular Filt Rate 18.4 mL/min (>60); Globulin 2.4 g/dL (1.7-4.1); Glucose 116 mg/dL (80-110); HEMOLYSIS < 15 (0-50); Potassium 4.7 mmol/L (3.4-5.1); Sodium 136 mmol/L (137-145); Total Protein 6.5 g/dL (6.3-8.2)
[2018-04-26 14:28] LABS: Abnormal Protein Band 1 0.2 g/dL (NONE DETECTED); Albumin 3.8 g/dL (3.8-4.8); Alpha 1 Globulin 0.4 g/dL (0.2-0.3); Beta 1 Globulin 0.4 g/dL (0.4-0.6); Gamma Globulin 0.4 g/dL (0.8-1.7); Protein, Total 6.3 g/dL (6.1-8.1)
== END ==
PROVIDERS: PCP Family Medicine
DX: C90.00 Multiple myeloma not having achieved remission (principal)
CPT/HCPCS: 36415; 80053; 83735; 84155; 84165; 85025

== ENCOUNTER → 2018-05-12 07:24 | Outpatient (CLI) | payer OTHER, SELFPAY ==
[2018-05-12 07:55] LABS: Add Manual Diff / Slide Review NO; Basophils Absolute Auto 0 /uL (0-100); Basophils Percent Auto 0.6 % (0-2); Eosinophils Absolute Auto 100 /uL (0-450); Eosinophils Percent Auto 2.1 % (2-4); Hemoglobin 9.6 g/dL (13.5-17.5); Lymphocytes Absolute Auto 1500 /uL (1100-4500); Lymphocytes Percent Auto 27.6 % (25-40); Mean Corpuscular HGB Conc 34.5 % (30-36); Mean Corpuscular Hemoglobin 31.3 PG (26-34); Mean Corpuscular Volume 90.8 fL (80-100); Monocytes Absolute Auto 600 /uL (0-900); Monocytes Percent Auto 11.4 % (3-14); Neutrophils Absolute Auto 3200 /uL (1500-7000); Neutrophils Percent Auto 58.3 % (50-75); Platelet Count 217 X10^3/uL (150-400); Red Blood Cell Count 3.08 X10^6/uL (4.5-5.9); Red Cell Distribution Width 14.9 % (11.6-14.8); White Blood Cell Count 5.5 X10^3/uL (4.5-11.0)
[2018-05-12 08:06] LABS: Alanine Aminotransferase 35 IU/L (21-72); Albumin Globulin Ratio 1.4 (1.0-2.8); Alkaline Phosphatase 103 U/L (38-126); Aspartate Aminotransferase 39 IU/L (17-59); BUN Creatinine Ratio 9.2 (6-22); Bilirubin Total 0.4 mg/dL (0.2-1.3); Blood Urea Nitrogen 35 mg/dL (9-20); Calcium 9.1 mg/dL (8.4-10.2); Carbon Dioxide 23 mmol/L (22-32); Chloride 105 mmol/L (98-107); Estimated Glomerular Filt Rate 16.2 mL/min (>60); Globulin 2.9 g/dL (1.7-4.1); Glucose 105 mg/dL (80-110); HEMOLYSIS < 15 (0-50); Potassium 4.6 mmol/L (3.4-5.1); Sodium 139 mmol/L (137-145); Total Protein 6.9 g/dL (6.3-8.2)
== END ==
PROVIDERS: PCP Family Medicine
DX: C90.00 Multiple myeloma not having achieved remission (principal)
CPT/HCPCS: 36415; 80053; 85025

== ENCOUNTER → 2018-06-02 07:21 | Outpatient (CLI) | payer OTHER, SELFPAY | PROVIDERS: PCP Family Medicine | DX: C90.00 Multiple myeloma not having achieved remission (principal) | CPT/HCPCS: 36415; 80053; 83883; 84155; 84165; 85025 ==

== ENCOUNTER → 2018-06-09 07:47 | Outpatient (CLI) | payer OTHER, SELFPAY ==
[2018-06-09 08:16] LABS: Add Manual Diff / Slide Review NO; Basophils Absolute Auto 0 /uL (0-100); Basophils Percent Auto 0.6 % (0-2); Eosinophils Absolute Auto 100 /uL (0-450); Eosinophils Percent Auto 1.5 % (2-4); Hematocrit 29.1 % (41-53); Hemoglobin 10.1 g/dL (13.5-17.5); Lymphocytes Absolute Auto 1000 /uL (1100-4500); Lymphocytes Percent Auto 17.4 % (25-40); Mean Corpuscular HGB Conc 34.9 % (30-36); Mean Corpuscular Hemoglobin 31.5 PG (26-34); Mean Corpuscular Volume 90.5 fL (80-100); Monocytes Absolute Auto 400 /uL (0-900); Neutrophils Absolute Auto 4500 /uL (1500-7000); Neutrophils Percent Auto 74.5 % (50-75); Platelet Count 237 X10^3/uL (150-400); Red Blood Cell Count 3.21 X10^6/uL (4.5-5.9); Red Cell Distribution Width 14.2 % (11.6-14.8)
[2018-06-09 08:42] LABS: Alanine Aminotransferase 46 IU/L (21-72); Albumin 4.2 g/dL (3.5-5.0); Albumin Globulin Ratio 1.8 (1.0-2.8); Alkaline Phosphatase 92 U/L (38-126); Aspartate Aminotransferase 37 IU/L (17-59); Bilirubin Total 0.5 mg/dL (0.2-1.3); Blood Urea Nitrogen 36 mg/dL (9-20); Calcium 9.4 mg/dL (8.4-10.2); Carbon Dioxide 25 mmol/L (22-32); Chloride 103 mmol/L (98-107); Estimated Glomerular Filt Rate 17.2 mL/min (>60); Globulin 2.3 g/dL (1.7-4.1); Glucose 100 mg/dL (80-110); HEMOLYSIS < 15 (0-50); Sodium 139 mmol/L (137-145); Total Protein 6.5 g/dL (6.3-8.2)
[2018-06-09 08:56] LABS: Potassium 5.6 mmol/L (3.4-5.1)
== END ==
PROVIDERS: Family Provider Specialist; PCP Family Medicine
DX: C90.00 Multiple myeloma not having achieved remission (principal)
CPT/HCPCS: 36415; 80053; 85025

== ENCOUNTER → 2018-06-19 16:14 | Outpatient (CLI) | payer OTHER, SELFPAY ==
--- NOTE | 2018-06-19 16:16 | DI.RAD.S_ITS ---
PROCEDURE: XR CHEST 2V INDICATIONS: r/o TB prior to treatment TECHNIQUE: 2 views of the chest were acquired. COMPARISON: None. FINDINGS: Surgical changes and devices: Right-sided central venous catheter is in place with the tip projecting over the cavoatrial junction. Lungs and pleura: Lungs are clear. No focal consolidations or cavitary lesions identified. No pleural effusions or pneumothorax. Mediastinum: Mediastinal contours are normal. Heart size is normal. Bones and chest wall: No suspicious bony abnormalities. Soft tissues appear unremarkable. IMPRESSION: Chest without acute cardiopulmonary abnormalities or focal airspace disease. Dictated by: Juan Moya M.D. on 06/19/2018 at 18:23 Approved by: Juan Moya M.D. on 06/19/2018 at 18:24
== END ==
PROVIDERS: Family Provider Specialist; PCP Family Medicine; Visit Provider Family Medicine
DX: C90.00 Multiple myeloma not having achieved remission (principal); Z04.89 Encounter for examination and observation for other specified reasons
CPT/HCPCS: 71046

== ENCOUNTER → 2018-11-10 09:24 | Outpatient (CLI) | payer OTHER, SELFPAY ==
[2018-11-10 10:52] LABS: Hematocrit 29.3 % (41-53); Hemoglobin 10.3 g/dL (13.5-17.5); Mean Corpuscular Hemoglobin 35.4 PG (26-34); Mean Corpuscular Volume 100.9 fL (80-100); Platelet Count 217 X10^3/uL (150-400); Red Blood Cell Count 2.91 X10^6/uL (4.5-5.9); Red Cell Distribution Width 14.4 % (11.6-14.8); White Blood Cell Count 3.2 X10^3/uL (4.5-11.0)
[2018-11-10 10:53] LABS: Add Manual Diff / Slide Review YES
[2018-11-10 11:07] LABS: Neutrophils Absolute Manual 224 /uL (3000-5900); Total Cells Counted 100
[2018-11-10 11:08] LABS: Rouleaux 1+
[2018-11-10 11:09] LABS: Alanine Aminotransferase 18 IU/L (21-72); Albumin 4.4 g/dL (3.5-5.0); Albumin Globulin Ratio 1.4 (1.0-2.8); Alkaline Phosphatase 80 U/L (38-126); Aspartate Aminotransferase 38 IU/L (17-59); BUN Creatinine Ratio 13.2 (6-22); Bilirubin Total 0.6 mg/dL (0.2-1.3); Blood Urea Nitrogen 41 mg/dL (9-20); Calcium 9.8 mg/dL (8.4-10.2); Carbon Dioxide 24 mmol/L (22-32); Chloride 102 mmol/L (98-107); Estimated Glomerular Filt Rate 20.4 mL/min (>60); Globulin 3.1 g/dL (1.7-4.1); Glucose 107 mg/dL (80-110); HEMOLYSIS < 15 (0-50); Potassium 4.2 mmol/L (3.4-5.1); Sodium 136 mmol/L (137-145); Total Protein 7.5 g/dL (6.3-8.2)
--- NOTE | 2018-11-10 12:32 | DI.MRI.S_ITS ---
PROCEDURE: MR BONE MARROW INDICATIONS: f/u myeloma TECHNIQUE: Noncontrast sagittal T1 spin echo and STIR through the spine; coronal T1 spin echo and STIR through the bony thorax, coronal T1 spin echo and STIR through the bony pelvis and femurs. COMPARISON: None. FINDINGS: Image quality: Excellent. Spine: All visualized vertebral bodies are normally aligned. No vertebral body compression fractures. The bone marrow demonstrates no suspicious lesions or signal abnormalities. The central spinal canal is of normal overall caliber. The visualized spinal cord demonstrates normal intramedullary signal. The conus is in expected position. No epidural or paravertebral soft tissue masses. Pelvis and hips: The bone marrow demonstrates normal signal throughout. No pelvic ring or sacral pathologic or insufficiency fractures. Physiologic amounts of hip joint fluid are present. No joint degeneration or soft tissue bursal fluid collections. Soft tissues: No free pelvic fluid. No pathologic pelvic or inguinal adenopathy. Visualized bowel loops appear normal in caliber. Limited images through the genitourinary tract demonstrate no abnormalities. The muscles demonstrate normal overall bulk and internal signal. IMPRESSION: No evidence for focal or disseminated marrow space metastatic disease. Expected mild degenerative disc disease and facet osteoarthritis is present along the cervical, thoracic and lumbosacral spine. No acute disease. Dictated by: Bertrand Robin M.D. on 11/11/2018 at 17:22 Approved by: Bertrand Robin M.D. on 11/11/2018 at 17:23
[2018-11-10 14:53] LABS: Creatinine Urine Random 52.7 mg/dL; Protein (Total) Urine Random 26 mg/dL (0-12)
[2018-11-10 14:58] LABS: Collection Time Urine 24 Hours; Creatinine 24 Hour Urine 1318 mg/day (1000-2000); Total Protein 24 Hour Urine 650 mg/day (42-225); Total Volume Urine 2500 mL
[2018-11-13 14:11] LABS: Albumin 20 %; Protein, Total, 24 hr urine 525 mg/24 h (<150); Protein/ Creatinine Ratio 387 mg/g creat (<115); Total Volume 2500 mL
== END ==
PROVIDERS: Family Provider Specialist; PCP Family Medicine
DX: C90.00 Multiple myeloma not having achieved remission (principal); M47.812 Spondylosis without myelopathy or radiculopathy, cervical region; M47.814 Spondylosis without myelopathy or radiculopathy, thoracic region; M47.817 Spondylosis without myelopathy or radiculopathy, lumbosacral region
CPT/HCPCS: 36415; 77084; 80053; 82570; 84156; 84166; 85025; 86850; 86900; 86901

== ENCOUNTER → 2019-01-06 08:33 | Outpatient (CLI) | payer OTHER, SELFPAY ==
[2019-01-06 09:34] LABS: Add Manual Diff / Slide Review NO; Basophils Absolute Auto 0 /uL (0-100); Basophils Percent Auto 0.5 % (0-2); Eosinophils Absolute Auto 0 /uL (0-450); Eosinophils Percent Auto 0.8 % (2-4); Hematocrit 33.2 % (41-53); Hemoglobin 11.9 g/dL (13.5-17.5); Lymphocytes Absolute Auto 1200 /uL (1100-4500); Lymphocytes Percent Auto 23.6 % (25-40); Mean Corpuscular HGB Conc 35.8 % (30-36); Mean Corpuscular Hemoglobin 36.1 PG (26-34); Mean Corpuscular Volume 100.8 fL (80-100); Monocytes Absolute Auto 400 /uL (0-900); Monocytes Percent Auto 7.9 % (3-14); Neutrophils Absolute Auto 3400 /uL (1500-7000); Neutrophils Percent Auto 67.2 % (50-75); Platelet Count 161 X10^3/uL (150-400); Red Blood Cell Count 3.29 X10^6/uL (4.5-5.9)
[2019-01-06 09:49] LABS: Alanine Aminotransferase 35 IU/L (<50); Albumin 4.6 g/dL (3.5-5.0); Albumin Globulin Ratio 1.9 (1.0-2.8); Alkaline Phosphatase 89 U/L (38-126); Aspartate Aminotransferase 46 IU/L (17-59); BUN Creatinine Ratio 11.3 (6-22); Bilirubin Total 0.5 mg/dL (0.2-1.3); Blood Urea Nitrogen 36 mg/dL (9-20); Calcium 8.4 mg/dL (8.4-10.2); Carbon Dioxide 25 mmol/L (22-32); Chloride 106 mmol/L (98-107); Estimated Glomerular Filt Rate 19.7 mL/min (>60); Globulin 2.4 g/dL (1.7-4.1); Glucose 100 mg/dL (80-110); HEMOLYSIS < 15 (0-50); Potassium 5.1 mmol/L (3.4-5.1); Sodium 140 mmol/L (137-145)
[2019-01-06 09:50] LABS: Cholesterol 166 mg/dL (140-199); HDL Cholesterol 35 mg/dL (40-60); LDL Cholesterol Calculated 96 mg/dL (<100); Triglycerides 174 mg/dL (35-150)
[2019-01-06 10:02] LABS: Magnesium 2.1 mg/dL (1.6-2.3)
== END ==
PROVIDERS: Family Provider Specialist; PCP Family Medicine
DX: C90.00 Multiple myeloma not having achieved remission (principal); Z94.84 Stem cells transplant status
CPT/HCPCS: 36415; 80053; 80061; 83735; 85025

== ENCOUNTER → 2019-01-20 08:07 | Outpatient (CLI) | payer OTHER, SELFPAY ==
[2019-01-20 08:38] LABS: Add Manual Diff / Slide Review NO; Basophils Absolute Auto 0 /uL (0-100); Basophils Percent Auto 0.4 % (0-2); Eosinophils Absolute Auto 100 /uL (0-450); Eosinophils Percent Auto 1.7 % (2-4); Hematocrit 36.8 % (41-53); Hemoglobin 12.9 g/dL (13.5-17.5); Lymphocytes Absolute Auto 1100 /uL (1100-4500); Lymphocytes Percent Auto 20.8 % (25-40); Mean Corpuscular Hemoglobin 34.8 PG (26-34); Mean Corpuscular Volume 99.4 fL (80-100); Monocytes Absolute Auto 300 /uL (0-900); Monocytes Percent Auto 6.3 % (3-14); Neutrophils Absolute Auto 3900 /uL (1500-7000); Neutrophils Percent Auto 70.8 % (50-75); Platelet Count 165 X10^3/uL (150-400); Red Cell Distribution Width 13.2 % (11.6-14.8); White Blood Cell Count 5.5 X10^3/uL (4.5-11.0)
[2019-01-20 08:48] LABS: Alanine Aminotransferase 34 IU/L (<50); Albumin 4.8 g/dL (3.5-5.0); Albumin Globulin Ratio 1.8 (1.0-2.8); Alkaline Phosphatase 88 U/L (38-126); Aspartate Aminotransferase 38 IU/L (17-59); BUN Creatinine Ratio 11.6 (6-22); Bilirubin Total 0.4 mg/dL (0.2-1.3); Blood Urea Nitrogen 37 mg/dL (9-20); Calcium 9.4 mg/dL (8.4-10.2); Carbon Dioxide 22 mmol/L (22-32); Chloride 108 mmol/L (98-107); Estimated Glomerular Filt Rate 19.7 mL/min (>60); Globulin 2.7 g/dL (1.7-4.1); Glucose 122 mg/dL (80-110); HEMOLYSIS < 15 (0-50); Potassium 4.7 mmol/L (3.4-5.1); Sodium 141 mmol/L (137-145); Total Protein 7.5 g/dL (6.3-8.2)
[2019-01-23 14:21] LABS: Free Kappa Light Chain 13.1 mg/L (3.3-19.4); Free Kappa/ Lambda Ratio 0.12 (0.26-1.65); Free Lambda 106.7 mg/L (5.7-26.3)
== END ==
PROVIDERS: PCP Family Medicine
DX: C90.00 Multiple myeloma not having achieved remission (principal)
CPT/HCPCS: 36415; 80053; 83883; 85025

== ENCOUNTER → 2019-03-03 07:59 | Outpatient (CLI) | payer OTHER, SELFPAY ==
[2019-03-03 08:51] LABS: Add Manual Diff / Slide Review NO; Basophils Absolute Auto 0 /uL (0-100); Basophils Percent Auto 0.7 % (0-2); Eosinophils Absolute Auto 600 /uL (0-450); Eosinophils Percent Auto 8.6 % (2-4); Hematocrit 34.7 % (41-53); Hemoglobin 12.1 g/dL (13.5-17.5); Lymphocytes Absolute Auto 1100 /uL (1100-4500); Lymphocytes Percent Auto 15.1 % (25-40); Mean Corpuscular HGB Conc 34.9 % (30-36); Mean Corpuscular Hemoglobin 34.1 PG (26-34); Mean Corpuscular Volume 97.7 fL (80-100); Monocytes Absolute Auto 600 /uL (0-900); Neutrophils Absolute Auto 4700 /uL (1500-7000); Neutrophils Percent Auto 66.6 % (50-75); Platelet Count 165 X10^3/uL (150-400); Red Blood Cell Count 3.55 X10^6/uL (4.5-5.9); Red Cell Distribution Width 12.5 % (11.6-14.8)
[2019-03-03 08:58] LABS: Alanine Aminotransferase 26 IU/L (<50); Albumin 4.6 g/dL (3.5-5.0); Albumin Globulin Ratio 1.6 (1.0-2.8); Alkaline Phosphatase 71 U/L (38-126); Aspartate Aminotransferase 36 IU/L (17-59); BUN Creatinine Ratio 8.7 (6-22); Bilirubin Total 0.5 mg/dL (0.2-1.3); Blood Urea Nitrogen 27 mg/dL (9-20); Calcium 9.2 mg/dL (8.4-10.2); Carbon Dioxide 23 mmol/L (22-32); Chloride 106 mmol/L (98-107); Estimated Glomerular Filt Rate 20.4 mL/min (>60); Globulin 2.8 g/dL (1.7-4.1); Glucose 136 mg/dL (80-110); HEMOLYSIS < 15 (0-50); Potassium 4.4 mmol/L (3.4-5.1); Sodium 140 mmol/L (137-145); Total Protein 7.4 g/dL (6.3-8.2)
[2019-03-03 11:36] LABS: Collection Time Urine 24 Hours; Creatinine 24 Hour Urine 1288 mg/day (1000-2000); Total Volume Urine 2800 mL
== END ==
PROVIDERS: PCP Family Medicine
DX: C90.00 Multiple myeloma not having achieved remission (principal)
CPT/HCPCS: 80053; 82570; 85025; 86335

== ENCOUNTER → 2019-03-16 09:01 | Outpatient (CLI) | payer OTHER, SELFPAY ==
[2019-03-16 10:13] LABS: Add Manual Diff / Slide Review NO; Basophils Absolute Auto 0 /uL (0-100); Basophils Percent Auto 0.7 % (0-2); Eosinophils Absolute Auto 500 /uL (0-450); Eosinophils Percent Auto 7.1 % (2-4); Hematocrit 34.8 % (41-53); Lymphocytes Absolute Auto 900 /uL (1100-4500); Lymphocytes Percent Auto 13.4 % (25-40); Mean Corpuscular HGB Conc 34.6 % (30-36); Mean Corpuscular Hemoglobin 33.4 PG (26-34); Mean Corpuscular Volume 96.6 fL (80-100); Monocytes Absolute Auto 500 /uL (0-900); Neutrophils Absolute Auto 5000 /uL (1500-7000); Neutrophils Percent Auto 71.8 % (50-75); Platelet Count 185 X10^3/uL (150-400); Red Cell Distribution Width 12.6 % (11.6-14.8)
[2019-03-16 10:19] LABS: Alanine Aminotransferase 26 IU/L (<50); Albumin 4.5 g/dL (3.5-5.0); Albumin Globulin Ratio 1.5 (1.0-2.8); Alkaline Phosphatase 73 U/L (38-126); Aspartate Aminotransferase 39 IU/L (17-59); BUN Creatinine Ratio 13.7 (6-22); Bilirubin Total 0.5 mg/dL (0.2-1.3); Blood Urea Nitrogen 41 mg/dL (9-20); Calcium 9.8 mg/dL (8.4-10.2); Carbon Dioxide 24 mmol/L (22-32); Chloride 108 mmol/L (98-107); Estimated Glomerular Filt Rate 21.2 mL/min (>60); Glucose 99 mg/dL (80-110); HEMOLYSIS < 15 (0-50); Potassium 4.3 mmol/L (3.4-5.1); Sodium 143 mmol/L (137-145); Total Protein 7.5 g/dL (6.3-8.2)
[2019-03-17 16:17] LABS: Free Kappa Light Chain 16.8 mg/L (3.3-19.4); Free Kappa/ Lambda Ratio 0.26 (0.26-1.65)
== END ==
PROVIDERS: PCP Family Medicine
DX: C90.00 Multiple myeloma not having achieved remission (principal)
CPT/HCPCS: 36415; 80053; 83883; 85025

== ENCOUNTER → 2019-03-31 08:58 | Outpatient (CLI) | payer OTHER, SELFPAY ==
[2019-03-31 09:34] LABS: Add Manual Diff / Slide Review NO; Basophils Absolute Auto 100 /uL (0-100); Basophils Percent Auto 0.7 % (0-2); Eosinophils Absolute Auto 300 /uL (0-450); Eosinophils Percent Auto 4.3 % (2-4); Hematocrit 36.3 % (41-53); Hemoglobin 12.5 g/dL (13.5-17.5); Lymphocytes Absolute Auto 900 /uL (1100-4500); Lymphocytes Percent Auto 13.3 % (25-40); Mean Corpuscular HGB Conc 34.5 % (30-36); Mean Corpuscular Hemoglobin 33.9 PG (26-34); Mean Corpuscular Volume 98.5 fL (80-100); Monocytes Absolute Auto 500 /uL (0-900); Monocytes Percent Auto 6.8 % (3-14); Neutrophils Absolute Auto 5200 /uL (1500-7000); Neutrophils Percent Auto 74.9 % (50-75); Platelet Count 164 X10^3/uL (150-400); Red Blood Cell Count 3.69 X10^6/uL (4.5-5.9); Red Cell Distribution Width 13.3 % (11.6-14.8); White Blood Cell Count 6.9 X10^3/uL (4.5-11.0)
[2019-03-31 09:39] LABS: Alanine Aminotransferase 39 IU/L (<50); Albumin 4.6 g/dL (3.5-5.0); Albumin Globulin Ratio 1.5 (1.0-2.8); Alkaline Phosphatase 79 U/L (38-126); Aspartate Aminotransferase 47 IU/L (17-59); Bilirubin Total 0.6 mg/dL (0.2-1.3); Blood Urea Nitrogen 39 mg/dL (9-20); Calcium 9.6 mg/dL (8.4-10.2); Carbon Dioxide 23 mmol/L (22-32); Chloride 108 mmol/L (98-107); Estimated Glomerular Filt Rate 21.2 mL/min (>60); Globulin 3.1 g/dL (1.7-4.1); Glucose 105 mg/dL (80-110); HEMOLYSIS < 15 (0-50); Potassium 4.3 mmol/L (3.4-5.1); Sodium 143 mmol/L (137-145); Total Protein 7.7 g/dL (6.3-8.2)
[2019-04-03 16:49] LABS: Albumin 4.1 g/dL (3.8-4.8); Alpha 1 Globulin 0.4 g/dL (0.2-0.3); Beta 1 Globulin 0.3 g/dL (0.4-0.6); Gamma Globulin 0.6 g/dL (0.8-1.7); Protein, Total 6.7 g/dL (6.1-8.1)
== END ==
PROVIDERS: Internal Medicine Hematology & Oncology; PCP Family Medicine
DX: C90.00 Multiple myeloma not having achieved remission (principal)
CPT/HCPCS: 80053; 84155; 84165; 85025

== ENCOUNTER → 2019-05-18 14:21 | Outpatient (CLI) | payer OTHER, SELFPAY ==
[2019-05-18 15:01] LABS: Add Manual Diff / Slide Review NO; Basophils Absolute Auto 0 /uL (0-100); Basophils Percent Auto 0.6 % (0-2); Eosinophils Absolute Auto 100 /uL (0-450); Eosinophils Percent Auto 1.9 % (2-4); Hematocrit 37.4 % (41-53); Lymphocytes Absolute Auto 1400 /uL (1100-4500); Lymphocytes Percent Auto 20.9 % (25-40); Mean Corpuscular HGB Conc 34.8 % (30-36); Mean Corpuscular Hemoglobin 33.9 PG (26-34); Mean Corpuscular Volume 97.6 fL (80-100); Monocytes Absolute Auto 400 /uL (0-900); Monocytes Percent Auto 6.3 % (3-14); Neutrophils Absolute Auto 4900 /uL (1500-7000); Neutrophils Percent Auto 70.3 % (50-75); Platelet Count 176 X10^3/uL (150-400); Red Blood Cell Count 3.83 X10^6/uL (4.5-5.9); Red Cell Distribution Width 13.8 % (11.6-14.8); White Blood Cell Count 6.9 X10^3/uL (4.5-11.0)
[2019-05-18 15:11] LABS: Alanine Aminotransferase 36 IU/L (<50); Albumin 4.5 g/dL (3.5-5.0); Albumin Globulin Ratio 1.5 (1.0-2.8); Alkaline Phosphatase 97 U/L (38-126); Aspartate Aminotransferase 45 IU/L (17-59); BUN Creatinine Ratio 16.7 (6-22); Bilirubin Total 0.3 mg/dL (0.2-1.3); Blood Urea Nitrogen 57 mg/dL (9-20); Calcium 10.2 mg/dL (8.4-10.2); Carbon Dioxide 21 mmol/L (22-32); Chloride 105 mmol/L (98-107); Estimated Glomerular Filt Rate 18.2 mL/min (>60); Glucose 135 mg/dL (80-110); HEMOLYSIS < 15 (0-50); Potassium 4.7 mmol/L (3.4-5.1); Sodium 139 mmol/L (137-145); Total Protein 7.5 g/dL (6.3-8.2)
[2019-05-20 13:12] LABS: Levetiracetam Keppra 8.8 ug/mL (10.0-40.0)
[2019-09-06 13:46] LABS: Free Lambda Lt Chains,Serum 72.4
== END ==
PROVIDERS: Internal Medicine Hematology & Oncology; PCP Family Medicine; Referring Provider Family Medicine; Visit Provider Specialist
DX: R25.3 Fasciculation (principal); C90.00 Multiple myeloma not having achieved remission
CPT/HCPCS: 36415; 80053; 80177; 83883; 85025

== ENCOUNTER → 2019-07-07 08:00 | Outpatient (CLI) | payer OTHER, SELFPAY ==
[2019-07-07 08:22] LABS: Add Manual Diff / Slide Review NO; Basophils Absolute Auto 0 /uL (0-100); Basophils Percent Auto 0.6 % (0-2); Eosinophils Absolute Auto 100 /uL (0-450); Eosinophils Percent Auto 1.8 % (2-4); Hematocrit 38.9 % (41-53); Hemoglobin 13.3 g/dL (13.5-17.5); Lymphocytes Absolute Auto 1200 /uL (1100-4500); Lymphocytes Percent Auto 19.8 % (25-40); Mean Corpuscular HGB Conc 34.2 % (30-36); Mean Corpuscular Hemoglobin 33.6 PG (26-34); Mean Corpuscular Volume 98.4 fL (80-100); Monocytes Absolute Auto 600 /uL (0-900); Monocytes Percent Auto 9.2 % (3-14); Neutrophils Absolute Auto 4200 /uL (1500-7000); Neutrophils Percent Auto 68.6 % (50-75); Platelet Count 161 X10^3/uL (150-400); Red Blood Cell Count 3.96 X10^6/uL (4.5-5.9); Red Cell Distribution Width 13.7 % (11.6-14.8); White Blood Cell Count 6.2 X10^3/uL (4.5-11.0)
[2019-07-07 08:31] LABS: Alanine Aminotransferase 45 IU/L (<50); Albumin 4.5 g/dL (3.5-5.0); Albumin Globulin Ratio 1.5 (1.0-2.8); Alkaline Phosphatase 87 U/L (38-126); Aspartate Aminotransferase 52 IU/L (17-59); BUN Creatinine Ratio 10.7 (6-22); Bilirubin Total 0.5 mg/dL (0.2-1.3); Blood Urea Nitrogen 31 mg/dL (9-20); Calcium 8.9 mg/dL (8.4-10.2); Carbon Dioxide 24 mmol/L (22-32); Chloride 106 mmol/L (98-107); Glucose 97 mg/dL (80-110); HEMOLYSIS < 15 (0-50); Lactate Dehydrogenase 757 U/L (313-618); Potassium 4.5 mmol/L (3.4-5.1); Sodium 139 mmol/L (137-145); Total Protein 7.5 g/dL (6.3-8.2)
[2019-07-09 03:36] LABS: Beta-2-Microglobulin 4.9 mg/L (0.6-2.4)
[2019-07-09 13:36] LABS: Albumin 3.8 g/dL (2.9-4.4); Alpha-1-Globulin 0.3 g/dL (0.0-0.4); Alpha-2-Globulin 1.1 g/dL (0.4-1.0); Gamma Globulin 0.5 g/dL (0.4-1.8); Globulin Total 2.6 g/dL (2.2-3.9); Immunoglobulin A, Serum 17 mg/dL (61-437); Immunoglobulin G,Serum 536 mg/dL (603-1613); Immunoglobulin M, Serum 11 mg/dL (20-172); Protein, Total 6.4 g/dL (6.0-8.5)
[2019-09-06 13:58] LABS: Free Kappa Lt Chains, Serum 12.3; Free Lambda Lt Chains,Serum 61.1
== END ==
PROVIDERS: PCP Family Medicine; Referring Provider Internal Medicine Hematology & Oncology; Visit Provider Internal Medicine Hematology & Oncology
DX: C90.00 Multiple myeloma not having achieved remission (principal)
CPT/HCPCS: 36415; 80053; 82232; 82784; 83615; 83883; 84155; 84165; 85025; 86334

== ENCOUNTER → 2019-09-03 06:46 | Outpatient (CLI) | payer OTHER, MEDICARE, SELFPAY ==
[2019-09-03 07:24] LABS: Lactate Dehydrogenase 684 U/L (313-618)
[2019-09-03 09:09] LABS: HEMOLYSIS < 15 (0-50); Iron 93 ug/dL (49-181)
[2019-09-03 09:12] LABS: Cholesterol 177 mg/dL (140-199); HDL Cholesterol 43 mg/dL (40-60); LDL Cholesterol Calculated 81 mg/dL (<100); Triglycerides 266 mg/dL (35-150)
[2019-09-03 09:16] LABS: Vitamin D 25 Hydroxy (D3) 55.9 ng/mL (30.0-100.0)
[2019-09-03 09:17] LABS: Luteinizing Hormone 5.69 mIU/mL
[2019-09-03 09:21] LABS: Percent Iron Saturation 31 % (20-50); Total Iron Binding Capacity 299 ug/dL (261-462); Transferrin 243 mg/dL (206-381)
[2019-09-03 09:26] LABS: Free T4, Direct Thyroxine 1.14 ng/dL (0.78-2.19)
[2019-09-03 09:40] LABS: Thyroid Stimulating Hormone 3.31 uIU/mL (0.47-4.68)
[2019-09-03 09:44] LABS: Prostate Specific Antigen 0.367 ng/mL (0.10-4.00)
[2019-09-03 09:48] LABS: Ferritin 174 ng/mL (18-464)
[2019-09-04 12:11] LABS: % CD 3 Pos Lymphocytes 78.7 % (57.5-86.2); % CD 4 Pos Lymphocytes 44.9 % (30.8-58.5); % CD 8 Pos Lymphocytes 39.1 % (12.0-35.5); % CD19 + Lymphocytes 4.5 % (3.3-25.4); Absolute CD19 + Lymphocytes 54 /uL (12-645); Absolute CD3 944 /uL (622-2402); Absolute CD4 Helper 539 /uL (359-1519); CD4 CD8 Ratio 1.15 (0.92-3.72); Eosinophils 2 % (Not Estab.); Eosinophils (Absolute) 0.1 x10E3/uL (0.0-0.4); Hemacrit 32.4 % (37.5-51.0); Hemoglobin 10.8 g/dL (13.0-17.7); Immature Granulocytes 0 % (Not Estab.); Lymphocytes 18 % (Not Estab.); Lymphocytes (Absolute) 1.2 x10E3/uL (0.7-3.1); MCHC 33.3 g/dL (31.5-35.7); MCHC 33.6 pg (26.6-33.0); MCV 101 fL (79-97); Monocytes 8 % (Not Estab.); Monocytes (Absolute) 0.5 x10E3/uL (0.1-0.9); Neutrophils 72 % (Not Estab.); Neutrophils (Absolute) 4.9 x10E3/uL (1.4-7.0); Platelets 152 x10E3/uL (150-450); Red Blood Cells 3.21 x10E6/uL (4.14-5.80); White Blood Cells 6.8 x10E3/uL (3.4-10.8)
[2019-09-11 11:10] LABS: Percent Free Testosterone 1.74 % (1.50-4.20); Testosterone Free 8.28 ng/dL (5.00-21.00)
== END ==
PROVIDERS: Referring Provider Internal Medicine Hematology & Oncology; Visit Provider Internal Medicine Hematology & Oncology
DX: C90.00 Multiple myeloma not having achieved remission (principal)
CPT/HCPCS: 36415; 80061; 82306; 82728; 83002; 83540; 83550; 83615; 84153; 84402; 84403; 84439; 84443; 86355; 86360

== ENCOUNTER → 2019-11-10 12:41 | Outpatient (CLI) | payer MEDICARE, OTHER, SELFPAY | PROVIDERS: PCP Family Medicine; Referring Provider Family Medicine; Visit Provider Internal Medicine Hematology & Oncology | DX: C90.00 Multiple myeloma not having achieved remission (principal); M85.852 Other specified disorders of bone density and structure, left thigh; N28.9 Disorder of kidney and ureter, unspecified; Z79.52 Long term (current) use of systemic steroids | CPT/HCPCS: 77080 ==

== ENCOUNTER → 2020-04-27 10:12 | Outpatient (CLI) | payer OTHER, MEDICARE, SELFPAY ==
[2020-05-19 10:42] LABS: Total Urine Protein 4.9
[2020-05-19 10:43] LABS: Albumin 25.6; Protein, Total, 24 hr urine 88
== END ==
PROVIDERS: PCP Family Medicine; Referring Provider Internal Medicine Hematology & Oncology; Visit Provider Internal Medicine Hematology & Oncology
DX: C90.00 Multiple myeloma not having achieved remission (principal)
CPT/HCPCS: 84156; 84166; 86335

== ENCOUNTER → 2020-05-23 08:24 | Outpatient (CLI) | payer OTHER, MEDICARE, SELFPAY ==
[2020-05-23 09:06] LABS: Add Manual Diff / Slide Review NO; Basophils Absolute Auto 0 /uL (0-100); Basophils Percent Auto 0.9 % (0-2); Eosinophils Absolute Auto 100 /uL (0-450); Eosinophils Percent Auto 2.6 % (2-4); Hematocrit 37.9 % (41-53); Lymphocytes Absolute Auto 1300 /uL (1100-4500); Lymphocytes Percent Auto 24.9 % (25-40); Mean Corpuscular HGB Conc 34.2 % (30-36); Mean Corpuscular Hemoglobin 32.3 PG (26-34); Mean Corpuscular Volume 94.3 fL (80-100); Monocytes Absolute Auto 500 /uL (0-900); Monocytes Percent Auto 8.5 % (3-14); Neutrophils Absolute Auto 3400 /uL (1500-7000); Neutrophils Percent Auto 63.1 % (50-75); Platelet Count 172 X10^3/uL (150-400); Red Blood Cell Count 4.02 X10^6/uL (4.5-5.9); Red Cell Distribution Width 13.7 % (11.6-14.8); White Blood Cell Count 5.3 X10^3/uL (4.5-11.0)
[2020-05-23 09:19] LABS: Alanine Aminotransferase 29 IU/L (<50); Albumin 4.4 g/dL (3.5-5.0); Albumin Globulin Ratio 1.8 (1.0-2.8); Alkaline Phosphatase 80 U/L (38-126); Aspartate Aminotransferase 38 IU/L (17-59); BUN Creatinine Ratio 13.1 (6-22); Bilirubin Total 0.4 mg/dL (0.2-1.3); Blood Urea Nitrogen 36 mg/dL (9-20); Calcium 9.6 mg/dL (8.4-10.2); Carbon Dioxide 24 mmol/L (22-32); Chloride 105 mmol/L (98-107); Estimated Glomerular Filt Rate 23.3 mL/min (>60); Globulin 2.4 g/dL (1.7-4.1); Glucose 106 mg/dL (80-110); HEMOLYSIS < 15 (0-50); Lactate Dehydrogenase 695 U/L (313-618); Potassium 4.8 mmol/L (3.4-5.1); Sodium 138 mmol/L (137-145); Total Protein 6.8 g/dL (6.3-8.2)
[2020-05-23 09:24] LABS: Cholesterol 253 mg/dL (140-199); HDL Cholesterol 38 mg/dL (40-60); LDL Cholesterol Calculated 169 mg/dL (<100); Triglycerides 232 mg/dL (35-150)
[2020-05-24 14:20] LABS: Free Kappa Lt Chains, Serum 13.4 mg/L (3.3-19.4)
[2020-05-25 12:39] LABS: Beta-2-Microglobulin 5.3 mg/L (0.6-2.4); Immunoglobulin A, Serum 32 mg/dL (61-437); Immunoglobulin G,Serum 738 mg/dL (603-1613); Immunoglobulin M, Serum 20 mg/dL (20-172)
[2020-05-25 14:58] LABS: Albumin 3.8 g/dL (2.9-4.4); Alpha-1-Globulin 0.2 g/dL (0.0-0.4); Alpha-2-Globulin 0.9 g/dL (0.4-1.0); Gamma Globulin 0.7 g/dL (0.4-1.8); Globulin Total 2.7 g/dL (2.2-3.9); Protein, Total 6.5 g/dL (6.0-8.5)
== END ==
PROVIDERS: Internal Medicine Hematology & Oncology; PCP Family Medicine; Referring Provider Family Medicine; Visit Provider Family Medicine
DX: C90.00 Multiple myeloma not having achieved remission (principal); E78.5 Hyperlipidemia, unspecified; Z79.899 Other long term (current) drug therapy
CPT/HCPCS: 36415; 80053; 80061; 82232; 82784; 83615; 83883; 84155; 84165; 85025; 86334

== ENCOUNTER → 2020-07-27 07:19 | Outpatient (CLI) | payer OTHER, MEDICARE, SELFPAY ==
[2020-07-29 13:48] LABS: Calprotectin, Stool 38 ug/g (0-120)
== END ==
PROVIDERS: PCP Family Medicine; Referring Provider Internal Medicine Gastroenterology; Visit Provider Internal Medicine Gastroenterology
DX: R19.7 Diarrhea, unspecified (principal)
CPT/HCPCS: 83993; 87045; 87493; 87899

== ENCOUNTER → 2020-08-01 09:52 | Outpatient (CLI) | payer OTHER, MEDICARE, SELFPAY ==
[2020-08-01 12:28] LABS: COVID19 -Nasal RAPID Negative (Negative)
== END ==
PROVIDERS: PCP Family Medicine; Visit Provider Physician Assistant
DX: Z01.812 Encounter for preprocedural laboratory examination (principal); Z20.822 Contact with and (suspected) exposure to COVID-19
CPT/HCPCS: 87635

== ENCOUNTER 2020-08-03 12:52 | Day surgery (SDC) | payer OTHER, MEDICARE, SELFPAY ==
[2020-08-03] VITALS (8 sets, daily range): BP systolic 98–153; BP diastolic 62–86; PULSE 74–92; RESP 14–18; TEMP 36.7–37.2; O2SAT 92–99; BMI 25.5
--- NOTE | 2020-08-03 | PATH_ITS ---
[facility] Accession Number: [id number] . 01 Material submitted: . colon - RANDOM COLON BIOPSIES . 02 Diagnosis: Random Colon, Biopsies: Colonic mucosa with no diagnostic abnormality. Negative for active, chronic, and microscopic colitis. Negative for dysplasia and malignancy. . MRV 08/08/2020 1110 Local . 02 Electronically signed: . Moshe Salmeron MD, PhD, Pathologist NPI- [id number] . 01 Gross description: . RANDOM COLON BIOPSIES: Received in formalin are multiple fragment(s) of doyle, soft tissue measuring 1.2 x 0.4 x 0.1 cm in aggregate submitted entirely in 1 cassette(s) /LANCE 08/04/2020 0917 Local . 02 Pathologist provided ICD-10: R19.7 . 02 CPT . 111337 Performed at: 01 [facility] [address], [place], [place] [id number] MD Carmelo Bernabe MD Phone: [phone] [facility]formed at: [facility] [address] [place], [place] [id number] MD Rina Epstein MD Phone: [phone]
[2020-08-03] MEDS: SODIUM CHLORIDE 0.9% 1,000 ML 84 ML IV (14:03)
--- NOTE | 2020-08-03 14:13 | PM.HP.1 ---
History of Present Illness History of Present Illness Date Patient Seen: 08/03/20 Chief complaint: SDC Narrative: Diarrhea rule out underlying colitis Patient History Medical History (Updated 06/04/20 @ 12:20 by Miki Mustafa MD) Dry eye syndrome (1979) Fractures (1964) Hearing loss (1997) Monoclonal gammopathy of undetermined significance Multiple myeloma Mumps (1961) Positive PPD (1979) Severe single current episode of major depressive disorder, without psychotic features Vitiligo (1981) Surgical History (Updated 10/15/18 @ 09:56 by Deven Capellan MD) Anesthesia History of nasal septoplasty (1973) History of vasectomy Status post excision of lipoma (1994) Family & Social History Family History Brother Age: 73 Hypertension ETOH abuse Father Hypertension High cholesterol Lung cancer Grandfather COPD (chronic obstructive pulmonary disease) Grandmother Breast cancer Mother No problems noted. Grandfather [place] (myocardial infarction) CVA (cerebral vascular accident) Grandmother TB (tuberculosis) Social History: household members spouse Tobacco & Substance use: Smoking Status Never smoker alcohol intake current alcohol intake frequency a few times a month Substance Use Type does not use Meds Home Medications and Allergies Home Medications Medication Instructions Recorded Confirmed Type multivitamin 1 tab PO DAILY 09/17/18 08/03/20 History omega 0-koy-nki-fish oil [Fish Oil] 1 cap PO DAILY 01/20/19 08/03/20 History ixazomib 3 mg PO QWEEK #3 cap 05/19/19 08/03/20 Rx diphenhydramine HCl [Benadryl] 25 mg PO DAILY PRN #36 cap 09/17/19 08/03/20 Rx atorvastatin 10 mg tablet 10 mg PO DAILY #90 tab 11/03/19 08/03/20 Rx cholecalciferol (vitamin D3) 1,000 unit DAILY 12/03/19 08/03/20 History [Vitamin D3] trazodone 50 mg tablet 50 mg PO PRN #30 tab 04/18/20 08/03/20 Rx valacyclovir 500 mg tablet 500 mg PO .EVERY OTHER DAY tab 06/01/20 08/03/20 History dexamethasone 12 mg PO WEEKLY #72 tab 06/23/20 08/03/20 Rx amlodipine 5 mg tablet 5 mg PO DAILY #90 tab 07/26/20 08/03/20 Rx ixazomib [Ninlaro] See Rx Instructions .ROUTE .COMPLEX 08/02/20 08/03/20 History Allergies Allergy/AdvReac Type Severity Reaction Status Date / Time denosumab Allergy Mild upper body Uncoded 08/03/20 13:44 rash Exam Vital Signs (past 8 hours): - 08/03/20 13:32 Temperature 98.5 F Pulse Rate 92 H Respiratory Rate 18 Blood Pressure 153/86 H Pulse Oximetry 99 Oxygen Delivery Method Room Air Narrative Exam Narrative: Oropharynx free of lesions Chest clear to auscultation percussion Cardiac exam reveals no S3 or murmur Assessment & Plan Assessment & Plan narrative: Diarrhea rule out underlying colitis. Risks, benefits, alternatives have been explained.
--- NOTE | 2020-08-03 14:15 | PM.OP.ENDO ---
Operative Date/Time/Diagnoses Date of procedure: 08/03/20 Pre-op diagnosis: See indication Procedure & Clinicians Study performed: Colonoscopy Same procedure as scheduled: Yes Indications: Diarrhea rule out colitis. 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 The video colonoscope was introduced the rectum slowly advanced cecum. Preparation was good. On slow withdrawal mucosa was carefully examined. The scope was removed. The patient tolerated procedure well. Blood loss none Complications none Sedation Total sedation time 12 minutes Versed 8 mg fentanyl 100 mg IV titration Findings 1. Normal hypopharynx and vocal cords. Photographs taken 2. Normal esophagus with normal squamocolumnar junction 3. Patchy gastric erythema in the antrum biopsies taken to rule out Helicobacter 4. Two 6 mm polyps in the midbody of the stomach each biopsied x2 and and removed completely 5. Normal duodenal bulb and sweep Will be in touch regarding biopsies. We will set her up for a video fluoroscopic swallowing study with speech pathology and on hospital and the nerve return to see Dr. Garcia as an outpatient.
[2020-08-03] MEDS: MIDAZOLAM 5 MG/5 ML VIAL IV (14:50)
[2020-08-03] MEDS: fentaNYL 250 MCG/5 ML INJ IV (14:50)
--- NOTE | 2020-08-03 15:01 | PM.OP.ENDO ---
Operative Date/Time/Diagnoses Date of procedure: 08/03/20 Pre-op diagnosis: See indication and findings Procedure & Clinicians Study performed: Colonoscopy -corrected copy Same procedure as scheduled: Yes Indications: Diarrhea rule out colitis Surgeon: Erika Casarez Procedure Notes Procedure in detail: After informed consent was obtained the patient was placed left lateral decubitus position. The video colonoscope was introduced the rectum slowly advanced to cecum. Ic valve was identified and intubated. On slow withdrawal mucosa was carefully examined. The scope was removed. The patient tolerated procedure well. Blood loss none Complications none Sedation Total sedation time 18 minutes Versed 7 mg fentanyl 100 mg IV titration Findings 1. Normal a CT normal terminal ileum 2. Normal colonoscopy to cecum. Biopsies taken to rule out microscopic colitis Will be in touch with micro guarding his biopsies in the near future.
--- NOTE | 2020-08-03 15:12 | SUR.PHASEI ---
Pt to PACU via stretcher with RN. SBAR report received at bedside. Pt arousable to voice and touch. Back to sleep. Dr Casarez in to see patient at 1512. Pt able to converse with MD. MD notified of patient complaint of pain with abdominal palpation. Check done at bedside with MD. Pt stated it just feels like gas and patient instructed by MD to pass the gas.
--- NOTE | 2020-08-03 15:36 | SUR.PHASEI ---
Pt transfered to PACU phase II. SBAR report given at bedside to Mojgan GARDNER. Pt awake and alert. Taking tea.
--- NOTE | 2020-08-03 15:55 | SUR.PHASEII ---
IV dc'd and discharge teaching by Barber Payton RN
== END 2020-08-03 15:50 | disposition home or self-care (01) ==
PROVIDERS: PCP Family Medicine; Referring Provider Internal Medicine Gastroenterology; Visit Provider Internal Medicine Gastroenterology
PROC: 0DJD8ZZ Inspection of Lower Intestinal Tract, Via Natural or Artificial Opening Endoscopic (ICD-10-PCS; CPT 45378; principal; 2020-08-03 14:30)
DX: R19.7 Diarrhea, unspecified (principal); C90.00 Multiple myeloma not having achieved remission; E78.00 Pure hypercholesterolemia, unspecified; I10 Essential (primary) hypertension
CPT/HCPCS: 45380; J2250; J3010

== ENCOUNTER → 2021-10-19 15:49 | Outpatient (CLI) | payer MEDICARE, OTHER, SELFPAY ==
[2021-10-19 17:06] LABS: Adenovirus Not Detected (Not Detect); B. parapertussis Not Detected (Not Detecte); Bordetella pertussis Not Detected (Not Detecte); Chlamydophila pneumoniae Not Detected (Not Detect); Coronavirus 229E Not Detected (Not Detect); Coronavirus HKU1 Not Detected (Not Detect); Coronavirus NL 63 Not Detected (Not Detect); Coronavirus OC43 Not Detected (Not Detect); Human Metapneumovirus Not Detected (Not Detect); Human Rhinovirus/Enterovirus Not Detected (Not Detect); Influenza A Not Detected (Not Detect); Influenza B Not Detected (Not Detect); Mycoplasma pneumoniae Not Detected (Not Detect); Parainfluenza Virus 1 Not Detected (Not Detect); Parainfluenza Virus 2 Not Detected (Not Detect); Parainfluenza Virus 3 Not Detected (Not Detect); Parainfluenza Virus 4 Not Detected (Not Detect); Respiratory Syncytial Virus Not Detected (Not Detect); SARS- CoV-2 Not Detected (Not Detecte)
== END ==
PROVIDERS: PCP Family Medicine; Visit Provider Family Medicine
DX: J18.9 Pneumonia, unspecified organism (principal); R05.9 Cough, unspecified
CPT/HCPCS: 87633

== ENCOUNTER → 2021-10-19 16:01 | Outpatient (CLI) | payer OTHER, MEDICARE, SELFPAY ==
--- NOTE | 2021-10-19 16:05 | DI.RAD.S_ITS ---
PROCEDURE: XR CHEST 2V INDICATIONS: cough TECHNIQUE: 2 views of the chest were acquired. COMPARISON: [facility], CR, XR CHEST 2V, 06/19/2018, 16:15. FINDINGS: Surgical changes and devices: None. Lungs and pleura: Lungs are clear. No pleural effusions or pneumothorax. Mediastinum: Mediastinal contours are normal. Heart size is normal. Bones and chest wall: No suspicious bony abnormalities. Soft tissues appear unremarkable. IMPRESSION: No acute cardiopulmonary abnormalities or focal airspace disease. Dictated by: Juan Moya M.D. on 10/19/2021 at 18:17 Approved by: Juan Moya M.D. on 10/19/2021 at 18:18
[2021-10-19 16:53] LABS: Alanine Aminotransferase 47 IU/L (<50); Albumin Globulin Ratio 1.2 (1.0-2.8); Alkaline Phosphatase 76 U/L (38-126); Aspartate Aminotransferase 36 IU/L (17-59); BUN Creatinine Ratio 10.3 (6-22); Bilirubin Total 0.9 mg/dL (0.2-1.3); Blood Urea Nitrogen 24 mg/dL (9-20); Calcium 8.3 mg/dL (8.4-10.2); Carbon Dioxide 22 mmol/L (22-32); Chloride 105 mmol/L (98-107); Estimated Glomerular Filt Rate 30 mL/min (>60); Globulin 3.4 g/dL (1.7-4.1); Glucose 104 mg/dL (80-110); HEMOLYSIS < 15 (0-50); Potassium 4.5 mmol/L (3.4-5.1); Sodium 136 mmol/L (137-145); Total Protein 7.4 g/dL (6.3-8.2)
[2021-10-19 17:35] LABS: Add Manual Diff / Slide Review NO; Basophils Absolute Auto 0 /uL (0-100); Basophils Percent Auto 0.5 % (0-2); Eosinophils Absolute Auto 200 /uL (0-450); Eosinophils Percent Auto 2.3 % (2-4); Hematocrit 31.2 % (41-53); Hemoglobin 10.7 g/dL (13.5-17.5); Lymphocytes Absolute Auto 1500 /uL (1100-4500); Mean Corpuscular HGB Conc 34.4 % (30-36); Mean Corpuscular Hemoglobin 32.5 PG (26-34); Mean Corpuscular Volume 94.7 fL (80-100); Monocytes Absolute Auto 1200 /uL (0-900); Monocytes Percent Auto 17.5 % (3-14); Neutrophils Absolute Auto 3800 /uL (1500-7000); Neutrophils Percent Auto 57.7 % (50-75); Platelet Count 138 X10^3/uL (150-400); Red Blood Cell Count 3.29 X10^6/uL (4.5-5.9); White Blood Cell Count 6.6 X10^3/uL (4.5-11.0)
== END ==
PROVIDERS: PCP Family Medicine; Referring Provider Family Medicine; Visit Provider Family Medicine
DX: J18.9 Pneumonia, unspecified organism (principal); R05.9 Cough, unspecified
CPT/HCPCS: 36415; 71046; 80053; 85025; 87040; 87633

== ENCOUNTER → 2022-03-22 07:38 | Outpatient (CLI) | payer OTHER, MEDICARE, SELFPAY ==
[2022-03-22 08:03] LABS: Add Manual Diff / Slide Review NO; Basophils Absolute Auto 100 /uL (0-100); Basophils Percent Auto 1.4 % (0-2); Eosinophils Absolute Auto 200 /uL (0-450); Eosinophils Percent Auto 5.5 % (2-4); Hemoglobin 12.1 g/dL (13.5-17.5); Lymphocytes Absolute Auto 1200 /uL (1100-4500); Lymphocytes Percent Auto 30.8 % (25-40); Mean Corpuscular HGB Conc 34.5 % (30-36); Mean Corpuscular Hemoglobin 33.3 PG (26-34); Mean Corpuscular Volume 96.4 fL (80-100); Monocytes Absolute Auto 400 /uL (0-900); Monocytes Percent Auto 9.8 % (3-14); Neutrophils Absolute Auto 2100 /uL (1500-7000); Neutrophils Percent Auto 52.5 % (50-75); Platelet Count 128 X10^3/uL (150-400); Red Blood Cell Count 3.63 X10^6/uL (4.5-5.9); Red Cell Distribution Width 15.4 % (11.6-14.8)
[2022-03-22 08:14] LABS: Cholesterol 157 mg/dL (140-199); HDL Cholesterol 50 mg/dL (40-60); LDL Cholesterol Calculated 66 mg/dL (<100); Triglycerides 203 mg/dL (35-150)
[2022-03-22 08:15] LABS: Alanine Aminotransferase 39 IU/L (<50); Albumin 4.1 g/dL (3.5-5.0); Albumin Globulin Ratio 1.4 (1.0-2.8); Alkaline Phosphatase 71 U/L (38-126); Aspartate Aminotransferase 37 IU/L (17-59); BUN Creatinine Ratio 11.6 (6-22); Bilirubin Total 0.5 mg/dL (0.2-1.3); Blood Urea Nitrogen 29 mg/dL (9-20); Carbon Dioxide 25 mmol/L (22-32); Chloride 105 mmol/L (98-107); Estimated Glomerular Filt Rate 27 mL/min (>60); Globulin 2.9 g/dL (1.7-4.1); Glucose 96 mg/dL (80-110); HEMOLYSIS < 15 (0-50); Sodium 141 mmol/L (137-145)
[2022-03-22 08:17] LABS: Lactate Dehydrogenase 254 U/L (120-246)
[2022-03-22 08:46] LABS: TSH w/ Reflex to FT4 2.34 uIU/mL (0.47-4.68)
[2022-03-23 18:02] LABS: Free Kappa Lt Chains, Serum 12.6 mg/L (3.3-19.4); Free Lambda Lt Chains,Serum 23.1 mg/L (5.7-26.3)
[2022-03-24 16:47] LABS: Beta-2-Microglobulin 4.1 mg/L (0.6-2.4)
[2022-03-26 15:03] LABS: Immunoglobulin A, Serum 17 mg/dL (61-437); Immunoglobulin G,Serum 474 mg/dL (603-1613); Immunoglobulin M, Serum <5 mg/dL (20-172)
[2022-03-26 15:08] LABS: Albumin 3.3 g/dL (2.9-4.4); Alpha-1-Globulin 0.3 g/dL (0.0-0.4); Gamma Globulin 0.5 g/dL (0.4-1.8); Globulin Total 2.8 g/dL (2.2-3.9); Protein, Total 6.1 g/dL (6.0-8.5)
== END ==
PROVIDERS: Internal Medicine Hematology & Oncology; PCP Family Medicine; Referring Provider Family Medicine; Visit Provider Family Medicine
DX: E78.2 Mixed hyperlipidemia (principal); C90.00 Multiple myeloma not having achieved remission
CPT/HCPCS: 36415; 80053; 80061; 82232; 82784; 83615; 83883; 84155; 84165; 84443; 85025; 86334

== ENCOUNTER 2023-05-05 22:36 | Emergency (ER) | payer OTHER, MEDICARE, SELFPAY ==
[2023-05-05 22:40] VITALS: BP 137/79; PULSE 125; RESP 21; TEMP 39.2; O2SAT 95; BMI 27.0
[2023-05-05 22:48] VITALS: PULSE 132; O2SAT 94
[2023-05-05 22:49] VITALS: BP 137/79; PULSE 127; RESP 35; O2SAT 94
--- NOTE | 2023-05-05 22:55 | DI.RAD.S_ITS ---
PROCEDURE: XR CHEST 1V INDICATIONS: suspected sepsis TECHNIQUE: One view of the chest was acquired. COMPARISON: [facility], CR, XR CHEST 2V, 10/19/2021, 16:07. FINDINGS: Surgical changes and devices: None. Lungs and pleura: Lungs are clear. No pleural effusions or pneumothorax. Mediastinum: Mediastinal contours appear normal. Heart size is normal. Bones and chest wall: No suspicious bony lesions. Overlying soft tissues appear unremarkable. IMPRESSION: No acute cardiopulmonary abnormality is seen. Approved by: Stanley Delvalle M.D. on 05/05/2023 at 23:29
[2023-05-05 23:00] VITALS: PULSE 123; RESP 35; O2SAT 93
[2023-05-05] MEDS: ONDANSETRON 4 MG/2 ML INJ IV (23:00)
[2023-05-05 23:01] VITALS: BP 124/77; PULSE 129; RESP 34; O2SAT 96
[2023-05-05 23:01] LABS: Add Manual Diff / Slide Review NO; Basophils Absolute Auto 0 /uL (0-100); Basophils Percent Auto 0.2 % (0-2); Eosinophils Absolute Auto 100 /uL (0-450); Eosinophils Percent Auto 2.9 % (2-4); Hematocrit 43.3 % (41-53); Hemoglobin 14.8 g/dL (13.5-17.5); Lymphocytes Absolute Auto 1000 /uL (1100-4500); Lymphocytes Percent Auto 21.2 % (25-40); Mean Corpuscular HGB Conc 34.1 % (30-36); Mean Corpuscular Hemoglobin 31.9 PG (26-34); Mean Corpuscular Volume 93.7 fL (80-100); Monocytes Absolute Auto 300 /uL (0-900); Monocytes Percent Auto 5.4 % (3-14); Neutrophils Absolute Auto 3400 /uL (1500-7000); Neutrophils Percent Auto 70.3 % (50-75); Platelet Count 118 X10^3/uL (150-400); Red Blood Cell Count 4.62 X10^6/uL (4.5-5.9); Red Cell Distribution Width 15.3 % (11.6-14.8); White Blood Cell Count 4.8 X10^3/uL (4.5-11.0)
[2023-05-05 23:07] LABS: Prothrombin Time 11.2 SECONDS (9.4-12.5)
[2023-05-05] MEDS: SODIUM CHLORIDE 0.9% 1,000 ML 1000 ML IV (23:09)
[2023-05-05 23:10] LABS: PTT Partial Thromboplastin Tim 31 SECONDS (25.1-36.5)
[2023-05-05] MEDS: ACETAMINOPHEN IV 1,000 MG/100 ML VIAL 400 MG IV (23:10)
[2023-05-05 23:14] LABS: Alanine Aminotransferase 41 IU/L (<50); Albumin 4.3 g/dL (3.5-5.0); Albumin Globulin Ratio 1.5 (1.0-2.8); Alkaline Phosphatase 84 U/L (38-126); Aspartate Aminotransferase 42 IU/L (17-59); BUN Creatinine Ratio 17.2 (6-22); Bilirubin Total 0.9 mg/dL (0.2-1.3); Blood Urea Nitrogen 41 mg/dL (9-20); Calcium 8.9 mg/dL (8.4-10.2); Carbon Dioxide 18 mmol/L (22-32); Chloride 113 mmol/L (98-107); Estimated Glomerular Filt Rate 29 mL/min (>60); Globulin 2.8 g/dL (1.7-4.1); Glucose 141 mg/dL (80-110); HEMOLYSIS 29 (0-50); Lactate (Lactic Acid) 2.6 mmol/L (0.7-2.1); Lipase 104 U/L (23-300); Potassium 4.2 mmol/L (3.4-5.1); Sodium 141 mmol/L (137-145); Total Protein 7.1 g/dL (6.3-8.2)
[2023-05-05 23:30] VITALS: BP 109/71; PULSE 112; RESP 33; TEMP 38.7; O2SAT 96
--- NOTE | 2023-05-05 23:35 | ED_ITS ---
HPI - Fever General Chief Complaint: Fever Stated Complaint: FEVER, DIARRHEA, VOMITING Time Seen by Provider: 05/05/23 22:37 Source: patient and family Mode of arrival: Family Vehicle History of Present Illness HPI Narrative: 67-year-old male with history of multiple myeloma, on maintenance medications in remission, chronic kidney disease presents by private vehicle from home for nausea, vomiting, diarrhea. Patient states that earlier this morning he ate an egg that he believes may not have been fully cooked and was overly runny. This evening while eating dinner he felt lower abdominal pressure and had multiple episodes of vomiting and diarrhea. Patient states that he had a similar episode 2 years prior after eating uncooked oysters, but this was even more intense. He became concerned that he was going to dehydrate himself and presented to the ED. abdominal pain has resolved but he still feels very nauseous. Related Data Home Medications Medication Instructions Recorded Confirmed multivitamin 1 tab PO DAILY 09/17/18 09/17/22 omega 5-qsg-bht-fish oil 1,000 mg 1 cap PO DAILY 01/20/19 09/17/22 (120 mg-180 mg) capsule (Fish Oil) cholecalciferol (vitamin D3) 25 1,000 unit DAILY 12/03/19 09/17/22 mcg (1,000 unit) capsule (Vitamin D3) Previous Rx's Medication Instructions Recorded valacyclovir 500 mg tablet 500 mg PO DAILY #30 tabs 02/06/22 (Valtrex) atorvastatin 10 mg tablet See Rx Instructions .Route 04/16/22 .COMPLEX #90 tabs dexamethasone 4 mg tablet 4 mg PO DIRECTED #90 tabs 07/30/22 mirtazapine 7.5 mg tablet 7.5 mg PO BEDTIME PRN Insomnia #30 07/31/22 tabs lenalidomide 5 mg capsule 5 mg PO DIRECTED #21 caps 09/27/22 ondansetron 4 mg disintegrating 4 mg PO Q8H PRN nausea and 05/06/23 tablet vomiting #30 tabs Allergies Allergy/AdvReac Type Severity Reaction Status Date / Time denosumab Allergy Mild upper body Uncoded 07/31/22 08:51 rash Review of Systems Review of Systems Narrative: See HPI Patient History Medical History (Updated 05/08/23 @ 22:53 by Ashley Meneses MD) Severe single current episode of major depressive disorder, without psychotic features ESRD (end stage renal disease) on dialysis Multiple myeloma Monoclonal gammopathy of undetermined significance Dry eye syndrome (1979) Positive PPD (1979) Fractures (1964) Hearing loss (1997) Mumps (1961) Vitiligo (1981) MGUS (monoclonal gammopathy of unknown significance) Surgical History (Updated 10/15/18 @ 09:56 by Deven Capellan MD) Anesthesia History of nasal septoplasty (1973) Status post excision of lipoma (1994) History of vasectomy Family History Brother Age: 76 Hypertension ETOH abuse Father Hypertension High cholesterol Lung cancer Grandfather COPD (chronic obstructive pulmonary disease) Grandmother Breast cancer Mother No problems noted. Grandfather VA (myocardial infarction) CVA (cerebral vascular accident) Grandmother TB (tuberculosis) Social History household members: spouse Smoking Status: Never smoker alcohol intake: current Smoking Status: Never smoker alcohol intake frequency: a few times a month Substance Use Type: does not use Exam Initial Vital Signs Initial Vital Signs: Vital Signs Temperature 102.6 F H 05/05/23 22:40 Pulse Rate 125 H 05/05/23 22:40 Respiratory Rate 21 05/05/23 22:40 Blood Pressure 137/79 05/05/23 22:40 Pulse Oximetry 95 05/05/23 22:40 Oxygen Delivery Method Room Air 05/05/23 22:40 Const: Awake, alert, no acute distress, nontoxic appearing Cardiac: Tachycardia, regular rhythm RESP: unlabored, clear bilaterally, no wheezing GI: Soft, nontender, nondistended, no rebound, no guarding MSK: Atraumatic, full range of motion, pulses equal Skin: Warm, Dry, intact, no rashes Neuro: AO x3, CN II-XII grossly intact, moves all extremities Course Orders Ordered: Discontinued Medications Sodium Chloride (Normal Saline 0.9%) 1,000 mls @ 1,000 mls/hr IV BOLUS ONE Stop: 05/05/23 23:53 Last Infusion: 05/06/23 00:43 Dose: Infused Documented By: Admin: 05/05/23 23:09 Dose: 1,000 mls/hr Documented By: LLUVIA Acetaminophen (Ofirmev) 1,000 mg in 100 mls @ 400 mls/hr IV NOW ONE Stop: 05/05/23 23:15 Last Infusion: 05/05/23 23:30 Dose: Infused Documented By: Admin: 05/05/23 23:10 Dose: 400 mls/hr Documented By: LLUVIA Ceftriaxone Sodium 2,000 mg/ (Sodium Chloride) 100 mls @ 200 mls/hr IV NOW ONE Stop: 05/06/23 00:30 Last Infusion: 05/06/23 01:26 Dose: Infused Documented By: Admin: 05/06/23 00:47 Dose: 200 mls/hr Documented By: LLUVIA Sodium Chloride (Normal Saline 0.9%) 1,000 mls @ 1,000 mls/hr IV BOLUS ONE Stop: 05/06/23 02:33 Last Infusion: 05/06/23 03:10 Dose: Infused Documented By: Admin: 05/06/23 01:54 Dose: 1,000 mls/hr Documented By: CULLEN Ondansetron HCl (Ondansetron 4 Mg Odt) 4 mg PO NOW PRN PRN Reason: Nausea And Vomiting Ondansetron HCl (Ondansetron 4 Mg/2 Ml Inj) 4 mg IV NOW PRN PRN Reason: Nausea And Vomiting Last Admin: 05/05/23 23:00 Dose: 4 mg Documented By: LLUVIA Ondansetron HCl (Ondansetron 4 Mg Odt Prepack) 1 bottle MISC DIRECTED ONE Stop: 05/06/23 03:20 Vital Signs Vital signs: Vital Signs - 8 hr 05/05/23 23:30 05/05/23 23:30 05/06/23 00:00 Temperature 101.7 F H Pulse Rate 112 H Respiratory Rate 33 H Blood Pressure 109/71 99/62 Pulse Oximetry 96 Oxygen Delivery Method 05/06/23 00:00 05/06/23 00:30 05/06/23 00:30 Temperature Pulse Rate 114 H 101 H Respiratory Rate 31 H 27 H Blood Pressure 90/62 Pulse Oximetry 95 95 Oxygen Delivery Method 05/06/23 00:34 05/06/23 00:34 05/06/23 00:41 Temperature 100.6 F H Pulse Rate 105 H Respiratory Rate 27 H Blood Pressure 89/60 L 98/59 L Pulse Oximetry 95 Oxygen Delivery Method 05/06/23 00:41 05/06/23 00:45 05/06/23 00:45 Temperature Pulse Rate 104 H 105 H Respiratory Rate 29 H 27 H Blood Pressure 93/59 L Pulse Oximetry 95 97 Oxygen Delivery Method 05/06/23 01:00 05/06/23 01:00 05/06/23 01:15 Temperature Pulse Rate 102 H Respiratory Rate 29 H Blood Pressure 95/55 L 94/55 L Pulse Oximetry 97 Oxygen Delivery Method 05/06/23 01:15 05/06/23 01:30 05/06/23 01:30 Temperature Pulse Rate 99 H 97 H Respiratory Rate 28 H 26 H Blood Pressure 93/53 L Pulse Oximetry 97 96 Oxygen Delivery Method 05/06/23 01:45 05/06/23 01:45 05/06/23 02:00 Temperature 100.1 F H Pulse Rate 97 H Respiratory Rate 27 H Blood Pressure 98/57 L 90/55 L Pulse Oximetry 96 Oxygen Delivery Method Room Air 05/06/23 02:00 05/06/23 02:15 05/06/23 02:15 Temperature Pulse Rate 98 H 96 H Respiratory Rate 28 H 31 H Blood Pressure 98/55 L Pulse Oximetry 96 98 Oxygen Delivery Method 05/06/23 02:30 05/06/23 02:30 05/06/23 02:45 Temperature Pulse Rate 96 H 92 H Respiratory Rate 28 H 27 H Blood Pressure 99/56 L Pulse Oximetry 98 95 Oxygen Delivery Method Room Air 05/06/23 02:45 05/06/23 03:00 05/06/23 03:00 Temperature Pulse Rate 98 H Respiratory Rate 29 H Blood Pressure 94/52 L 104/61 Pulse Oximetry 95 Oxygen Delivery Method 05/06/23 03:15 05/06/23 03:15 05/06/23 03:30 Temperature Pulse Rate 99 H Respiratory Rate 26 H Blood Pressure 110/69 115/70 Pulse Oximetry 96 Oxygen Delivery Method 05/06/23 03:30 Temperature Pulse Rate 93 H Respiratory Rate 28 H Blood Pressure Pulse Oximetry 98 Oxygen Delivery Method MDM - Fever Differential Diagnosis Differential diagnosis: Likely fever of unknown origin, gastroenteritis and sepsis Lab Data 05/05/23 22:53 05/05/23 22:53 Labs: Lab Results 05/05/23 05/05/23 05/06/23 Range/Units 22:53 23:12 00:42 WBC 4.8 (4.5-11.0) X10^3/uL RBC 4.62 (4.5-5.9) X10^6/uL Hgb 14.8 (13.5-17.5) g/dL Hct 43.3 (41-53) % MCV 93.7 (80-100) fL MCH 31.9 (26-34) PG MCHC 34.1 (30-36) % RDW 15.3 H (11.6-14.8) % Plt Count 118 L (150-400) X10^3/uL Neut % (Auto) 70.3 (50-75) % Lymph % (Auto) 21.2 L (25-40) % [place] % (Auto) 5.4 (3-14) % Eos % (Auto) 2.9 (2-4) % Baso % (Auto) 0.2 (0-2) % Neut # (Auto) 3400 (3805-2059) /uL Lymph # (Auto) 1000 L (4690-5752) /uL [place] # (Auto) 300 (0-900) /uL Eos # (Auto) 100 (0-450) /uL Baso # (Auto) 0 (0-100) /uL PT 11.2 (9.4-12.5) SECONDS INR 1.0 (0.9-1.3) APTT 31 (25.1-36.5) SECONDS Sodium 141 (137-145) mmol/L Potassium 4.2 (3.4-5.1) mmol/L Chloride 113 H (98-107) mmol/L Carbon Dioxide 18 L (22-32) mmol/L BUN 41 H (9-20) mg/dL Creatinine 2.38 H (0.66-1.25) mg/dL Estimated GFR 29 L (>60) mL/min BUN/Creatinine Ratio 17.2 (6-22) Glucose 141 H (80-110) mg/dL Lactate 2.6 H 2.2 H (0.7-2.1) mmol/L Calcium 8.9 (8.4-10.2) mg/dL Total Bilirubin 0.9 (0.2-1.3) mg/dL AST 42 (17-59) IU/L ALT 41 (<50) IU/L Alkaline Phosphatase 84 (38-126) U/L Total Protein 7.1 (6.3-8.2) g/dL Albumin 4.3 (3.5-5.0) g/dL Globulin 2.8 (1.7-4.1) g/dL Albumin/Globulin Ratio 1.5 (1.0-2.8) Lipase 104 (23-300) U/L Procalcitonin 1.78 H (<0.5) ng/mL Chlamy pneumoniae PCR Not detected (Not Detect) Adenovirus (PCR) Not detected (Not Detect) B.parapertussis DNA PCR Not detected (Not Detecte) Coronavirus OC43 (PCR) Not detected (Not Detect) Coronavirus HKU1 (PCR) Not detected (Not Detect) Coronavirus 229E (PCR) Not detected (Not Detect) SARS-CoV-2 (PCR) Not detected (Not Detecte) Coronavirus NL63 (PCR) Not detected (Not Detect) Human Metapneumovir PCR Not detected (Not Detect) Influenza Type A (PCR) Not detected (Not Detect) Influenza Type B (PCR) Not detected (Not Detect) M. pneumoniae (PCR) Not detected (Not Detect) Parainfluenza 1 (PCR) Not detected (Not Detect) Parainfluenza 2 (PCR) Not detected (Not Detect) Parainfluenza 3 (PCR) Not detected (Not Detect) Parainfluenza 4 (PCR) Not detected (Not Detect) RSV (PCR) Not detected (Not Detect) Entero/Rhino (PCR) Not detected (Not Detect) Urine Dip Bedside Urine Glucose Negative Bedside Urine Bilirubin - Negative Bedside Urine Ketone - Negative Urine Specific [place] 1.015 Bedside Urine Occult Blood - Negative Bedside Urine pH 5.5 Bedside Urine Protein +/- 15 Bedside Urine Urobilinogen - Negative Bedside Urine Nitrite - Negative Bedside Urine Leukocytes - Negative Esterase MDM Narrative Medical decision making narrative: Nausea, vomiting, nonbloody diarrhea several hours after eating a not fully cooked egg. Abdomen is soft, there is absolutely no reproducible tenderness to light or deep palpation. Patient reports resolution several minutes after receiving Zofran and states he already feels much better. Patient was noted to be febrile and tachycardic on arrival. He states that he did have a fever when he had his last episode of food poisoning, however sepsis bundle ordered out of precaution. Laboratory work shows WBC count 4.8, hemoglobin 14.8, creatinine 2.38, at baseline, lactate 2.6 with repeat 2.2 after IV fluids. Patient tolerating p.o. fluids after Zofran, heart rate and fever decreased with Tylenol and IV fluids. Procalcitonin 1.78, however there is no obvious source of infection other than the patient's diarrhea. Chest x-ray negative for acute process. Urinalysis negative for signs of infection. All labs discussed with patient and at bedside. Patient states that he feels significantly better and would like to go home to recover. He requested a prescription of Zofran, which was sent to his pharmacy and a prepack sent home in case he feels nauseous overnight. I recommended that if patient does not experience improvement in 24 hours that he return for repeat evaluation. Patient and in agreement. Discharge Plan Departure Patient Disposition: Home Clinical Impression: Vomiting, Diarrhea, Multiple myeloma Instructions: DI for Diarrhea and Traveler's Diarrhea -- Adult, DI for Vomiting -- Adult Activity Restrictions/Additional Instructions: Follow a light diet over the next day or 2 to prevent irritating your stomach. Take the Zofran as prescribed for nausea. Make sure to stay hydrated and drink fluids such as Gatorade or Pedialyte for electrolytes. If you continued to run fevers and have diarrhea please return to the emergency department for repeat evaluation. Prescriptions: New ondansetron 4 mg tablet,disintegrating 4 mg PO Q8H PRN (Reason: nausea and vomiting) Qty: 30 0RF No Action valacyclovir [Valtrex] 500 mg tablet 500 mg PO DAILY Qty: 30 10RF atorvastatin 10 mg tablet See Rx Instructions .ROUTE .COMPLEX Qty: 90 2RF Dose Instruction: TAKE 1 TABLET BY MOUTH DAILY Rx Instructions: TAKE 1 TABLET BY MOUTH DAILY multivitamin Tablet 1 tab PO DAILY omega 8-eou-pjr-fish oil [Fish Oil] 1,000 mg (120 mg-180 mg) Capsule 1 cap PO DAILY cholecalciferol (vitamin D3) [Vitamin D3] 25 mcg (1,000 unit) Capsule 1,000 unit DAILY dexamethasone 4 mg Tablet 4 mg PO DIRECTED Qty: 90 1RF Rx Instructions: take 1/2 tab (2 mg) twice a week on Saturday and mirtazapine 7.5 mg Tablet 7.5 mg PO BEDTIME PRN (Reason: Insomnia) Qty: 30 2RF lenalidomide 5 mg Capsule 5 mg PO DIRECTED Qty: 21 11RF Rx Instructions: Take 1 pill (5 mg) on days 1-21 every 28 days. Swallow whole with glass of water; do not open, crush, chew , break, or dissolve. Referrals: Miki Mustafa MD [Primary Care Provider] - Stand Alone Forms: Patient Portal/API
[2023-05-05 23:44] LABS: Procalcitonin 1.78 ng/mL (<0.5)
[2023-05-06] VITALS (16 sets, daily range): BP systolic 89–115; BP diastolic 52–70; PULSE 92–114; RESP 26–31; TEMP 37.8–38.1; O2SAT 95–98
[2023-05-06 00:20] LABS: Adenovirus Not Detected (Not Detect); B. parapertussis Not Detected (Not Detecte); Bordetella pertussis Not Detected (Not Detect); Chlamydophila pneumoniae Not Detected (Not Detect); Coronavirus 229E Not Detected (Not Detect); Coronavirus HKU1 Not Detected (Not Detect); Coronavirus NL 63 Not Detected (Not Detect); Coronavirus OC43 Not Detected (Not Detect); Human Metapneumovirus Not Detected (Not Detect); Human Rhinovirus/Enterovirus Not Detected (Not Detect); Influenza A Not Detected (Not Detect); Influenza B Not Detected (Not Detect); Mycoplasma pneumoniae Not Detected (Not Detect); Parainfluenza Virus 1 Not Detected (Not Detect); Parainfluenza Virus 2 Not Detected (Not Detect); Parainfluenza Virus 3 Not Detected (Not Detect); Parainfluenza Virus 4 Not Detected (Not Detect); Respiratory Syncytial Virus Not Detected (Not Detect); SARS- CoV-2 Not Detected (Not Detecte)
[2023-05-06 00:34] LABS: Reflexed Lactate in 2 Hours Y
[2023-05-06] MEDS: cefTRIAXone 2,000 MG in SODIUM CHLORIDE 0.9% 100 ML 200 MG IV (00:47)
[2023-05-06 01:05] LABS: Lactate 2HR (Lactic Acid Rflx) 2.2 mmol/L (0.7-2.1)
[2023-05-06] MEDS: SODIUM CHLORIDE 0.9% 1,000 ML 1000 ML IV (01:54)
== END 2023-05-06 03:40 | disposition home or self-care (01) ==
PROVIDERS: Emergency Provider Emergency Medicine; Family Provider Family Medicine; PCP Family Medicine
DX: R19.7 Diarrhea, unspecified (principal); R11.10 Vomiting, unspecified; C90.00 Multiple myeloma not having achieved remission; R10.9 Unspecified abdominal pain
CPT/HCPCS: 36415; 71045; 80053; 81003; 83605; 83690; 84145; 85025; 85610; 85730; 87040; 87633; 93005; 93010; 96361; 96365; 96367; 96375; 99284; J0136; J0696; J2405

== ENCOUNTER → 2023-05-10 10:42 | Outpatient (CLI) | payer OTHER, MEDICARE, SELFPAY ==
[2023-05-10 13:12] LABS: Adenovirus F 40/41 Not Detected (Not Detect); Astrovirus Not Detected (Not Detect); Campylobacter Not Detected (Not Detect); Clostridium difficile toxin AB Not Detected (Not Detect); Cryptosporidium Not Detected (Not Detect); Cyclospora cayetanensis Not Detected (Not Detect); Entamoeba histolytica Not Detected (Not Detect); Enteroaggregative E.coli Not Detected (Not Detect); Enteropathogenic E.coli Not Detected (Not Detect); Enterotoxigenic E.coli It/st Not Detected (Not Detect); Giardia lamblia Not Detected (Not Detect); Norovirus GI/GII Not Detected (Not Detect); Plesiomonsa shigelloides Not Detected (Not Detect); Rotavirus A Not Detected (Not Detect); Salmonella Not Detected (Not Detect); Sapovirus Not Detected (Not Detect); Shiga-like toxin-prod E.coli Not Detected (Not Detect); Shigella/Enteroinvasive E.coli Not Detected (Not Detect); Vibrio Not Detected (Not Detect); Vibrio cholerae Not Detected (Not Detect); Yersinia enterocolitica Not Detected (Not Detect)
== END ==
LOC: LAB 10:45
PROVIDERS: Family Provider Family Medicine; PCP Family Medicine; Referring Provider Nurse Practitioner Gerontology; Visit Provider Nurse Practitioner Gerontology
DX: K52.1 Toxic gastroenteritis and colitis (principal); T45.1X5A Adverse effect of antineoplastic and immunosuppressive drugs, initial encounter; B20 Human immunodeficiency virus [HIV] disease; A08.4 Viral intestinal infection, unspecified
CPT/HCPCS: 87507